=== PATIENT | female | born 1940 | race Caucasian/White ===

== ENCOUNTER → 2016-05-29 | Outpatient (CLI) | payer BC ==
[~2016-05-29] MED LIST: ALBUAER2 INH; ASPEC81 PO; ATRINS INH; CZR50 PO; GLC500 PO; LEVO75TA33 PO; MCR5 PO; REPA0.5T PO; SIMV10TA2 PO; [UNRECOGNIZED DRUG - OTHER] PO
--- NOTE | 2016-05-29 12:40 | MAMMOGRAPHY REPORT ---
BILATERAL DIGITAL SCREENING MAMMOGRAM WITH CAD: 05/29/2016 CLINICAL HISTORY: Routine screening. Patient has no complaints. TECHNIQUE: Current study was also evaluated with a Computer Aided Detection (CAD) system. Bilatera l CC and MLO views were obtained. COMPARISON: Comparison is made to exams dated: 05/26/2015 mammogram, 06/12/2012 mammogram, 05/29/2011 mammogram, 05/26/2010 mammogram, 05/24/2009 mammogram, and 06/20/2013 mammogram - [facility] enter. BREAST COMPOSITION: There are scattered areas of fibroglandular density in both breasts. FINDINGS: No suspicious masses, calcifications, or areas of architectural distortion are noted in e ither breast. There has been no significant interval change compared to prior exams. Scattered bilat eral benign-appearing calcifications are not significantly changed. IMPRESSION: ACR BI-RADS CATEGORY 2: BENIGN There is no mammographic evidence of malignancy. A 1 year screening mammogram is recommended. The p atient will receive written notification of the results. Approximately 10% of breast cancers are not detected with mammography. A negative mammographic repor t should not delay biopsy if a clinically suggestive mass is present. Eliana Hahn M.D. ah/:05/29/2016 11:47:10 Director Sales And Trade Marketing: Kiley Rabago, [facility] letter sent: Normal 1/2 BI-RADS Code: ACR BI-RADS Category 2: Benign
== END | disposition home or self-care (01) ==
LOC: C.MAMM 10:06
PROVIDERS: ATTEND Family Medicine
DX: Z12.31 Encounter for screening mammogram for malignant neoplasm of breast (principal)

== ENCOUNTER 2017-04-17 09:57 | Emergency (ER) | payer BC ==
[~2017-04-17] VITALS: Ht 154.9 cm; Wt 92.1 kg
[2017-04-17 09:59] VITALS: TEMP 36.7; Ht 154.9 cm; Wt 92.1 kg
[2017-04-17] MEDS ORDERED: VNTHFA/IN INH ×2 (10:32→11:23)
[2017-04-17] MEDS ORDERED: LOSA1TAB38 PO (10:36)
[2017-04-17] MEDS ORDERED: ASPI81TA28 PO (10:36)
[2017-04-17] MEDS ORDERED: CHOL1TAB42 PO (10:36)
[2017-04-17] MEDS ORDERED: SITA100T3 PO (10:36)
[2017-04-17] MEDS ORDERED: REPA2TAB12 PO (10:36)
[2017-04-17] MEDS ORDERED: SYN100 PO (10:36)
[2017-04-17] MEDS ORDERED: TURM500T PO (10:36)
[2017-04-17] MEDS ORDERED: TOLT1CAP3 PO (10:36)
--- NOTE | 2017-04-17 10:39 | EMERGENCY ROOM VISIT NOTE ---
History First contact with patient: 10:18 Chief Complaint: FLU LIKE SX Stated Complaint: SOB, COUGH, FEVER, SORE THROAT History of Present Illness The patient is a 76 year old female who presents to the Emergency Room with complaints of cough, sore throat, ear pain, chest tightness and trouble breathing since April 04. She reports her symptoms have been worsening since then. She states her chest feels tight when she takes a deep breath in or after coughing, and that she feels as though she has trouble getting a breath in and is wheezing. With regards to her cough, it is non-productive. She states she has a history of asthma and uses her albuterol inhalers on an as needed basis, but has run out. She states she received her flu shot this year. She denies chest pain, palpitations, syncopal episodes, n/v, and leg swelling. She recent travelled back by car from [place] on Sunday. Review of Systems See HPI for pertinent positives & negatives. A total of 10 systems reviewed and were otherwise negative. Past Medical/Surgical History Medical Problems: (1) Type II diabetes mellitus Diabetes Mellitus Asthma Hyperlipidemia Hypertension Hypothyroidism Social History Smoking Status: Never Smoker Current/Historical Medications Scheduled Albuterol Hfa (Ventolin Hfa), 2-4 PUFFS INH Q6H Aspirin (Aspirin Ec), 81 MG PO DAILY Azithromycin (Zithromax Z-Siva), 0 PO UD Cholecalciferol (Vitamin D), 5,000 INTER.UNIT PO DAILY Ipratropium-Albuterol (Duoneb), 1 TREATMENT INH Q4H Levothyroxine Sodium (Synthroid), 100 MCG PO DAILY Losartan Potassium (Cozaar), 100 MG PO DAILY Repaglinide (Prandin), 2 MG PO AC Simvastatin (Zocor), 10 MG PO QPM Sitagliptin Phosphate (Januvia), 100 MG PO DAILY Tolterodine Tartrate (Tolterodine Tartrate ER), 4 MG PO DAILY Turmeric (Curcuma Longa) (Turmeric), 500 MG PO DAILY Physical Exam Vital Signs Date Time Temp Pulse Resp B/P (MAP) Pulse Ox O2 Delivery O2 Flow Rate FiO2 04/17/17 11:46 86 20 130/66 95 Room Air 04/17/17 09:59 36.7 88 18 151/84 97 Room Air Physical Exam HEENT: Head - normocephalic and atraumatic. Pupils are equal, round, and reactive to light. Extraocular eye muscles are intact and sclera are anicteric. Ears - bilaterally patent canals with noninjected tympanic membranes and no evidence of hemotympanum. Nose - moist nasal mucosa without discharge. Mouth - moist buccal mucosa. Oropharynx is nonerythematous and there is no tonsillar exudate or edema noted. Neck: Supple; no JVD, nuchal rigidity, cervical lymphadenopathy, or auscultated bruits. Heart: Regular rate and rhythm. There is a normal S1 and S2 with no murmurs, clicks, or gallops appreciated. Lungs: Breath sounds present with wheezing noted throughout. Abdomen: Soft, completely nontender, nondistended, with good bowel sounds. There are no palpable pulsatile masses or hepatosplenomegaly. There is no guarding, rigidity, or rebound noted. Extremities: No evidence of cyanosis, clubbing, or edema. There are easily palpable peripheral pulses. Neuro:The patient is awake and alert, oriented to day, time, and place. Muscle strength is 5/5 in all 4 extremities. The patient has equal cotton buyer strength and equal pedal push and pull. There are no cerebellar signs. Medical Decision & Procedures ER Provider Diagnostic Interpretation: CHEST ONE VIEW PORTABLE CLINICAL HISTORY: 76 years-old Female presenting with 2 week hx of cough. rule out infection. TECHNIQUE: Portable upright AP view of the chest was obtained. COMPARISON: 03/02/2011. FINDINGS: Atherosclerosis of the aortic arch. Cardiac silhouette normal in size. Mildly low lung volumes. Lungs and pleural spaces clear. Degenerative changes of the thoracic spine. Upper abdomen normal. IMPRESSION: 1. No acute cardiopulmonary disease. Laboratory Results Test 04/17/17 11:15 Influenza Type A (RT-PCR) Neg for Influ A (NEG) Influenza Type B (RT-PCR) Neg for Influ B (NEG) Medications Administered Medications (Trade) Dose Ordered Sig/Gato Route Start Time Stop Time Status Last Admin Dose Admin Azithromycin (Zithromax Tab) 500 mg NOW STAT PO 04/17/17 11:18 04/17/17 11:19 DC 04/17/17 11:24 500 MG Albuterol/ Ipratropium (Duoneb) 3 ml STK-MED ONCE .ROUTE 04/17/17 11:22 04/17/17 11:23 DC 04/17/17 11:24 3 ML ED Course 10:18: The patient was evaluated in room A3. A complete history and physical exam was performed. 10:55: The case was discussed with the attending physician, Dr. Marshall. 11:55: The patient was reassessed. She is resting comfortably and reports an improvement in her wheezing after the duonebs. 12:10: The patient was reassessed. No new complaints. She is agreeable to discharge with follow up with her PCP. 12:26: Influenza swab came back negative. The patient was informed of this result. Medical Decision Etiologies such as pneumonia, COPD, reactive airway disease, CHF, pneumothorax, musculoskeletal, infections, as well as others were entertained. Given that her CXR was negative, and her breathing improved with the duonebs, she is safe for discharge with prescriptions for z-pack, duonebs and an albuterol inhaler. We counselled her on following up with her PCP and seeking medical attention if her condition worsened. Impression Primary Impression: Upper respiratory infection Departure Information Dispostion Home / Self-Care Prescriptions Albuterol Hfa (VENTOLIN HFA) 200 Puffs/39564 Mcg Aers 2-4 PUFFS INH Q6H, #1 INHALER Prov: Husam Hays M.D. 04/17/17 Ipratropium-Albuterol (DUONEB) 3 Ml Nebu 1 TREATMENT INH Q4H, #1 BOX Prov: Pilo Marshall D.O. 04/17/17 Azithromycin (ZITHROMAX Z-SIVA) 250 Mg Tab 0 PO UD, #1 PKT 2 TABS DAY 1, THEN 1 TAB DAILY FOR 4 DAYS Prov: Pilo Marshall D.O. 04/17/17 Referrals Maria Isabel Paez DO (PCP) Patient Instructions My [facility] Additional Instructions You presented to [facility] emergency department due to sore throat, ear pain, cough and chest tightness. Your chest xray was negative for an infection. We treated you with nebulizers here and will be discharging you home with a new prescription for duonebs to use as needed to improve your breathing. We also refilled your prescription for your albuterol inhaler, which you can use every four hours. We gave you a dose of an antibiotic called azithromycin here, and you require 4 more days of the azithromycin to finish the course. Please take the first dose tomorrow. If you experience worsening shortness of breath, chest pain, fever or chills, please seek medical attention. Otherwise, follow up with your primary care provider to ensure these symptoms resolve. Resident Tracking Resident Involvement: Resident Care Provided Care Provided: Adult ED Problem Qualifiers Primary Impression: Upper respiratory infection URI type: unspecified URI Qualified Codes: J06.9 - Acute upper respiratory infection, unspecified
[2017-04-17] MEDS ORDERED: ALBUT/IPRATROP 3MG/0.5MG NEB 3 ML VIAL INH ONE (11:15)
[2017-04-17] MEDS ORDERED: IPRA-64 INH ×2 (11:18→13:13)
[2017-04-17] MEDS ORDERED: AZITTAB PO (11:18)
[2017-04-17] MEDS ORDERED: AZITHROMYCIN 250 MG TAB PO STA (11:18)
[2017-04-17] MEDS ORDERED: ALBUT/IPRATROP 3MG/0.5MG NEB 3 ML VIAL ONE (11:22)
--- NOTE | 2017-04-17 11:28 | DIAGNOSTIC IMAGING REPORT ---
CHEST ONE VIEW PORTABLE CLINICAL HISTORY: 76 years-old Female presenting with 2 week hx of cough. rule out infection. TECHNIQUE: Portable upright AP view of the chest was obtained. COMPARISON: 03/02/2011. FINDINGS: Atherosclerosis of the aortic arch. Cardiac silhouette normal in size. Mildly low lung volumes. Lungs and pleural spaces clear. Degenerative changes of the thoracic spine. Upper abdomen normal. IMPRESSION: 1. No acute cardiopulmonary disease. Electronically signed by: Mak Berger M.D. 04/17/2017 11:27 AM Dictated Date/Time: 04/17/2017 11:26 AM
[2017-04-17 12:23] LABS: INFLUENZA A PCR Neg for Influ A (NEG); INFLUENZA B PCR Neg for Influ B (NEG)
[2017-04-17 12:33] VITALS: BP 147/82; PULSE 91; O2SAT 92
--- NOTE | 2017-04-17 13:16 | EMERGENCY ROOM VISIT NOTE ---
History Report prepared by Keely: Demetri Cruz Under the Supervision of: Dr. Pilo Marshall D.O. First contact with patient: 10:18 Chief Complaint: FLU LIKE SX Stated Complaint: SOB, COUGH, FEVER, SORE THROAT History of Present Illness The patient is a 76 year old female who presents to the Emergency Room with a chief complaint of a cough that began 2 weeks ago. She is also experiencing a sore throat, bilateral ear pain, chest tightness, and trouble breathing. She reports her symptoms have been worsening since then. She states her chest feels tight whenever she takes a deep breath or after coughing. With regards to her cough, it is non-productive. She states she has a history of asthma and uses her albuterol inhalers on an as needed basis, but has run out. She states she received her flu shot this year. She denies chest pain, palpitations, syncopal episodes, n/v, and leg swelling. She recent travelled back by car from [place] on Sunday. Source of History: patient Onset: 2 weeks ago Position: other (Respiratory System) Symptom Intensity: moderate (non-productive) Quality: other (Cough) Timing: worsening Associated Symptoms: + sorethroat, + SOB, No LOC, No chest pain, No nausea, No vomiting Note: She is experiencing bilateral ear pain and chest tightness. Review of Systems See HPI for pertinent positives & negatives. A total of 10 systems reviewed and were otherwise negative. Past Medical & Surgical Medical Problems: (1) Type II diabetes mellitus Family History Omitted secondary to the patient's age. Social History Smoking Status: Never Smoker Smokeless Tobacco Use: No Drug Use: none Occupation Status: retired Current/Historical Medications Scheduled Albuterol Hfa (Ventolin Hfa), 2-4 PUFFS INH Q6H Aspirin (Aspirin Ec), 81 MG PO DAILY Azithromycin (Zithromax Z-Siva), 0 PO UD Cholecalciferol (Vitamin D), 5,000 INTER.UNIT PO DAILY Ipratropium-Albuterol (Duoneb), 1 TREATMENT INH Q4H Levothyroxine Sodium (Synthroid), 100 MCG PO DAILY Losartan Potassium (Cozaar), 100 MG PO DAILY Repaglinide (Prandin), 2 MG PO AC Simvastatin (Zocor), 10 MG PO QPM Sitagliptin Phosphate (Januvia), 100 MG PO DAILY Tolterodine Tartrate (Tolterodine Tartrate ER), 4 MG PO DAILY Turmeric (Curcuma Longa) (Turmeric), 500 MG PO DAILY Allergies Coded Allergies: Alfentanil (Verified Allergy, Unknown, 04/17/17) Meperidine (Unverified Allergy, Unknown, VERTIGO, 04/17/17) Hurley (Verified Allergy, Unknown, 04/17/17) Chocorua (Verified Allergy, Unknown, 04/17/17) Physical Exam Vital Signs Date Time Temp Pulse Resp B/P (MAP) Pulse Ox O2 Delivery O2 Flow Rate FiO2 04/17/17 12:33 91 20 147/82 92 04/17/17 11:46 86 20 130/66 95 Room Air 04/17/17 09:59 36.7 88 18 151/84 97 Room Air Physical Exam CONSTITUTIONAL/VITAL SIGNS: Reviewed / noted above. GENERAL: Non-toxic in appearance. INTEGUMENTARY: Warm, dry, and [place]. HEAD: Normocephalic. EYES: without scleral icterus or trauma. ENT/OROPHARYNX: clear and moist. LYMPHADENOPATHY/NECK: Is supple without lymphadenopathy or meningismus. RESPIRATORY: Bilateral expiratory wheezes. Rhonchi to the left base. CARDIOVASCULAR: Regular rate and rhythm. GI/ABDOMEN: Soft and nontender. No organomegaly or pulsatile mass. No rebound or guarding. Normal bowel sounds. EXTREMITIES: Warm and well perfused. BACK: No CVA tenderness. NEUROLOGICAL: Intact without focal deficits. PSYCHIATRIC: normal affect. MUSCULOSKELETAL: Normally developed with good muscle tone. Medical Decision & Procedures ER Provider Diagnostic Interpretation: Radiology results as stated below per my review and radiologist interpretation: CHEST ONE VIEW PORTABLE CLINICAL HISTORY: 76 years-old Female presenting with 2 week hx of cough. rule out infection. TECHNIQUE: Portable upright AP view of the chest was obtained. COMPARISON: 03/02/2011. FINDINGS: Atherosclerosis of the aortic arch. Cardiac silhouette normal in size. Mildly low lung volumes. Lungs and pleural spaces clear. Degenerative changes of the thoracic spine. Upper abdomen normal. IMPRESSION: 1. No acute cardiopulmonary disease. Electronically signed by: Mak Berger M.D. 04/17/2017 11:27 AM Dictated Date/Time: 04/17/2017 11:26 AM Laboratory Results Test 04/17/17 11:15 Influenza Type A (RT-PCR) Neg for Influ A (NEG) Influenza Type B (RT-PCR) Neg for Influ B (NEG) Laboratory results as stated above per my review. Medications Administered Medications (Trade) Dose Ordered Sig/Gato Route Start Time Stop Time Status Last Admin Dose Admin Azithromycin (Zithromax Tab) 500 mg NOW STAT PO 04/17/17 11:18 04/17/17 11:19 DC 04/17/17 11:24 500 MG Albuterol/ Ipratropium (Duoneb) 3 ml STK-MED ONCE .ROUTE 04/17/17 11:22 04/17/17 11:23 DC 04/17/17 11:24 3 ML ED Course 1018: Previous medical records were reviewed. The patient was evaluated in room A3. A complete history and physical examination was performed. 1118: Ordered Azithromycin 500 mg PO 1122: Ordered DuoNeb 3 ml .ROUTE 1225: On reevaluation, the patient is resting. I discussed the results and findings with the patient. She verbalized agreement of the treatment plan. She was discharged home. Medical Decision Differentials considered include acute myocardial infarction, acute coronary syndrome, myocarditis, pericarditis, pericardial effusions /tamponade, esophageal perforation, pulmonary embolism, pneumonia, pneumothorax, cardiomyopathy, congestive heart, anemia, and COPD/asthma exacerbation. This is a 76-year-old female who presents to the ED with a chief complaint of shortness of breath, wheezing and a nonproductive cough. The patient states that she has had the symptoms for the past 2 weeks or so. Her symptoms seem to be getting worse. She had increased shortness of breath today. She states that she has been using her inhalers but has ran out. Her vital signs are normal. Her physical exam reveals diffuse expiratory wheezing on exam with some rhonchi left base. The patient has an unremarkable chest x-ray. Flu swab was negative. The patient was treated with a DuoNeb treatment here. Her wheezing and breathing improved significant only. She was started on Zithromax. Prescription for DuoNeb and Zithromax were provided. She was also given inhaler. Medication Reconcilliation Current Medication List: was personally reviewed by me Blood Pressure Screening Patient's blood pressure: Elevated blood pressure Blood pressure disposition: Referred to PCP Impression Primary Impression: Upper respiratory infection Additional Impressions: Asthma exacerbation Acute bronchitis Scribe Attestation The scribe's documentation has been prepared under my direction and personally reviewed by me in its entirety. I confirm that the note above accurately reflects all work, treatment, procedures, and medical decision making performed by me. Departure Information Dispostion Home / Self-Care Prescriptions Albuterol Hfa (VENTOLIN HFA) 200 Puffs/34156 Mcg Aers 2-4 PUFFS INH Q6H, #1 INHALER Prov: Husam Hays M.D. 04/17/17 Ipratropium-Albuterol (DUONEB) 3 Ml Nebu 1 TREATMENT INH Q4H, #1 BOX Prov: Pilo Marshall D.O. 04/17/17 Azithromycin (ZITHROMAX Z-SIVA) 250 Mg Tab 0 PO UD, #1 PKT 2 TABS DAY 1, THEN 1 TAB DAILY FOR 4 DAYS Prov: Pilo Marshall D.O. 04/17/17 Referrals Maria Isabel Paez DO (PCP) Forms HOME CARE DOCUMENTATION FORM, IMPORTANT VISIT INFORMATION Patient Instructions My [facility] Problem Qualifiers
[2017-04-17] MEDS ORDERED: PRVHFAIN NEB (14:41)
== END 2017-04-17 12:34 | disposition home or self-care (01) ==
LOC: C.EDB 09:59 → C.EDA 12:34
DX: J06.9 Acute upper respiratory infection, unspecified (principal); J45.909 Unspecified asthma, uncomplicated; J20.9 Acute bronchitis, unspecified; E11.9 Type 2 diabetes mellitus without complications; Z79.82 Long term (current) use of aspirin; Z79.899 Other long term (current) drug therapy; Z88.8 Allergy status to other drugs, medicaments and biological substances; Z91.018 Allergy to other foods

== ENCOUNTER → 2017-05-30 | Outpatient (CLI) | payer BC ==
[~2017-05-30] MED LIST changes: -ALBUAER2 INH; -ASPEC81 PO; +ASPI81TA28 PO; -ATRINS INH; +CHOL1TAB42 PO; -CZR50 PO; -GLC500 PO; +IPRASOL4 INH; -LEVO75TA33 PO; +LOSA1TAB38 PO; -MCR5 PO; +PRVHFAIN NEB; -REPA0.5T PO; +REPA2TAB12 PO; +SITA100T3 PO; +SYN100 PO; +TOLT1CAP3 PO; +TURM500T PO; +VNTHFA/IN INH; -[UNRECOGNIZED DRUG - OTHER] PO
--- NOTE | 2017-05-30 15:23 | MAMMOGRAPHY REPORT ---
BILATERAL DIGITAL SCREENING MAMMOGRAM TOMOSYNTHESIS WITH CAD: 05/30/2017 CLINICAL HISTORY: Routine screening. Patient has no complaints. TECHNIQUE: Breast tomosynthesis in addition to standard 2D mammography was performed. Current study was also evaluated with a Computer Aided Detection (CAD) system. COMPARISON: Comparison is made to exams dated: 05/29/2016 mammogram, 05/26/2015 mammogram, 06/20/2013 ma mmogram, 06/12/2012 mammogram, 05/29/2011 mammogram, and 05/26/2010 mammogram - [facility] nter. BREAST COMPOSITION: There are scattered areas of fibroglandular density in both breasts. FINDINGS: There are a few stable benign rim calcifications in the right breast. No suspicious mass, architectural distortion or cluster of microcalcifications is seen. IMPRESSION: ACR BI-RADS CATEGORY 1: NEGATIVE There is no mammographic evidence of malignancy. A 1 year screening mammogram is recommended. The pa tient will receive written notification of the results. Approximately 10% of breast cancers are not detected with mammography. A negative mammographic report should not delay biopsy if a clinically suggestive mass is present. Alina Lozano M.D. ay/:05/30/2017 10:28:10 Helicopter Mechanic: Sully HOLLOWAY([place])([place]), [facility] letter sent: Normal 1/2 BI-RADS Code: ACR BI-RADS Category 1: Negative
== END | disposition home or self-care (01) ==
LOC: C.MAMM 09:50
PROVIDERS: ATTEND Family Medicine
DX: Z12.31 Encounter for screening mammogram for malignant neoplasm of breast (principal)

== ENCOUNTER 2019-03-31 04:59 | Inpatient (IN) ==
--- NOTE | 2019-02-27 13:01 | PAT Medication Instructions ---
Medication Instructions Date of Service February 27, 2019 Home Medications albuterol sulfate 0.63 mg INHALATION QID PRN albuterol sulfate 1 puff INHALATION Q6H PRN cholecalciferol (vitamin D3) [Vitamin D3] 25 mcg PO QAM 02/25/19 [History Confirmed 02/25/19] fluticasone propion-salmeterol [Advair HFA] 2 puff INHALATION BID hydrochlorothiazide 25 mg PO QAM 02/25/19 [History Confirmed 02/25/19] insulin aspart U-100 [Novolog Flexpen U-100 Insulin] 1 unit SUBCUT TID insulin glargine [Lantus Solostar U-100 Insulin] 40 - 50 unit SUBCUT BID irbesartan 150 mg PO HS 02/25/19 [History Confirmed 02/25/19] levothyroxine 100 mcg PO QAM 02/25/19 [History Confirmed 02/25/19] losartan 50 mg PO QAM 02/25/19 [History Confirmed 02/25/19] montelukast 10 mg PO PM 02/25/19 [History Confirmed 02/25/19] omeprazole 20 mg PO BID 02/25/19 [History Confirmed 02/25/19] simvastatin 20 mg PO HS 02/25/19 [History Confirmed 02/25/19] sitagliptin [Januvia] 100 mg PO QAM 02/25/19 [History Confirmed 02/25/19] tolterodine 4 mg PO QAM 02/25/19 [History Confirmed 02/25/19] DO NOT take the morning of surgery cholecalciferol (vitamin D3) [Vitamin D3] 25 mcg PO QAM 02/25/19 [History Confirmed 02/25/19] hydrochlorothiazide 25 mg PO QAM 02/25/19 [History Confirmed 02/25/19] insulin aspart U-100 [Novolog Flexpen U-100 Insulin] 1 unit SUBCUT TID losartan 50 mg PO QAM 02/25/19 [History Confirmed 02/25/19] sitagliptin [Januvia] 100 mg PO QAM 02/25/19 [History Confirmed 02/25/19] tolterodine 4 mg PO QAM 02/25/19 [History Confirmed 02/25/19] Take morning of surgery With a small sip of water, OTHERWISE NOTHING TO EAT OR DRINK AFTER MIDNIGHT: albuterol sulfate 0.63 mg INHALATION QID PRN (if needed) albuterol sulfate 1 puff INHALATION Q6H PRN (use if needed; please bring with you to hospital day of surgery if possible) fluticasone propion-salmeterol [Advair HFA] 2 puff INHALATION BID levothyroxine 100 mcg PO QAM 02/25/19 [History Confirmed 02/25/19] omeprazole 20 mg PO BID 02/25/19 [History Confirmed 02/25/19] Take evening before surgery albuterol sulfate 0.63 mg INHALATION QID PRN (if needed) albuterol sulfate 1 puff INHALATION Q6H PRN (if needed) fluticasone propion-salmeterol [Advair HFA] 2 puff INHALATION BID insulin aspart U-100 [Novolog Flexpen U-100 Insulin] 1 unit SUBCUT TID insulin glargine [Lantus Solostar U-100 Insulin] 40 - 50 unit SUBCUT BID irbesartan 150 mg PO HS 02/25/19 [History Confirmed 02/25/19] montelukast 10 mg PO PM 02/25/19 [History Confirmed 02/25/19] omeprazole 20 mg PO BID 02/25/19 [History Confirmed 02/25/19] simvastatin 20 mg PO HS 02/25/19 [History Confirmed 02/25/19] Insulin Dependent Diabetic Patients * Test your blood sugar the morning of surgery * If Blood Sugar is GREATER THAN 150, take HALF of the number of units of your regular dose of: insulin glargine [Lantus Solostar U-100 Insulin] * If Blood Sugar is LESS THAN 150, DO NOT TAKE ANY: insulin glargine [Lantus Solostar U-100 Insulin] Other Notes If you have any questions please call us at [phone] or [phone] or [phone] or [phone]
--- NOTE | 2019-02-28 09:17 | Anesthesiology Consultation ---
Date of Service February 28, 2019 Assessment & Plan (1) Encounter for pre-operative examination: - Awaiting review preop testing (labs, EKG, CXR). - Patient seeing PCP office prior to surgery on 03/03 (Kendra Juaquin, PAC). Will obtain note. - Check [facility] AM DOS Chart Review Chart Review: Patient seen in Pre Admission Testing Teaching & Discussion Pre-Anesthesia Teaching/Discussion Notes: Instructed NPO after midnight before surgery,except medications with 15 cc of water. Medication instructions provided according to the PAT guidelines. History Surgery Operation Date: 03/31/19 14:00 Proposed Procedures p Left Total Knee Arthroplasty - Rahul Sofia MD Height/Weight Height: 5 ft 1.5 in Weight: 103.9 kg Allergies Allergy/AdvReac Type Severity Reaction Status Date / Time bee venom protein (honey bee) Allergy Intermediate Hives Verified 02/25/19 13:23 meperidine AdvReac Intermediate vertigo Unverified 02/27/19 12:58 alfentanil AdvReac Mild Abdominal Verified 02/27/19 12:58 cramps Medications Home Medications Medication Instructions Recorded Confirmed Last Taken albuterol sulfate 0.63 mg INHALATION QID PRN 02/25/19 02/25/19 Unknown albuterol sulfate 1 puff INHALATION Q6H PRN 02/25/19 02/25/19 Unknown cholecalciferol (vitamin D3) 25 mcg PO QAM 02/25/19 02/25/19 Unknown [Vitamin D3] fluticasone propion-salmeterol 2 puff INHALATION BID 02/25/19 02/25/19 Unknown [Advair HFA] hydrochlorothiazide 25 mg PO QAM 02/25/19 02/25/19 Unknown insulin aspart U-100 [Novolog 1 unit SUBCUT TID 02/25/19 02/25/19 Unknown Flexpen U-100 Insulin] insulin glargine [Lantus Solostar 40 - 50 unit SUBCUT BID 02/25/19 02/25/19 Unknown U-100 Insulin] irbesartan 150 mg PO HS 02/25/19 02/25/19 Unknown levothyroxine 100 mcg PO QAM 02/25/19 02/25/19 Unknown losartan 50 mg PO QAM 02/25/19 02/25/19 Unknown montelukast 10 mg PO PM 02/25/19 02/25/19 Unknown omeprazole 20 mg PO BID 02/25/19 02/25/19 Unknown simvastatin 20 mg PO HS 02/25/19 02/25/19 Unknown sitagliptin [Januvia] 100 mg PO QAM 02/25/19 02/25/19 Unknown tolterodine 4 mg PO QAM 02/25/19 02/25/19 Unknown Past Medical History Medical History (Updated 02/28/19 @ 09:54 by Sofia Main) Asthma stable Diabetes mellitus, type 2 IDDM GERD (gastroesophageal reflux disease) controlled Hoarseness unchanged x 8+ months (?asthma/reflux related)- undergoing voice therapy (S otolarygnology) Hyperlipidemia Hypertension Hypothyroidism Morbid obesity Osteoarthritis Sleep apnea CPAP Urinary urgency Exercise / Class Metabolic Activity III < 4 Walking/Shop/Light housework Past Family History Family History Son Family history of diabetes mellitus Daughter Family history of diabetes mellitus Uncle Family history of diabetes mellitus Past Surgical History Surgical History H/O total hysterectomy History of ankle surgery LEFT ANKLE FUSION History of carpal tunnel release RT History of colonoscopy History of surgery RT SALIVARY GLAND REMOVED History of tonsillectomy History of tooth extraction History of total knee replacement RT Past Anesthesia History No Family Hx of Anesthesia Complications and Other "Slow to wake" x 1 episode/no issues with other surgeries/anesthesia. History of PONV No Hx of PONV and Hx of Motion Sickness Social History Smoking Status: Former smoker tobacco type: cigarettes Do You Dip or Chew Tobacco: No Smoking End Date: QUIT OVER 40 YEARS AGO Hx Alcohol Use: Yes Alcohol type: wine alcohol intake frequency: holidays/special occasions only Hx Substance Use: No substance use type: does not use Review of Systems Reflux controlled. Patient denies chest pain, shortness of breath, cough, wheezing, palpitations. Physical Exam Vital Signs VITALS BP 127/74 P 75 TEMP 98.3 SP02 94%RA RESP 18 PHYSICAL Full neck and c-spine range of motion. Full TMJ range of motion. TMD 3.5 finger breaths Mallampati Score 2 Dentition: partial on upper Lungs: clear throughout to auscultation Cardiac: regular rate and rhythm, no murmurs noted Spine: normal Carotid arteries: negative bruit Extremities: no edema Short neck
--- NOTE | 2019-02-28 10:39 | XRay Report ---
XR chest Pre-admission PA/Lat HISTORY: 78 years-old Female pat preoperative exam. No acute chest complaints COMPARISON: Chest radiograph 04/17/2017 TECHNIQUE: PA and lateral views of the chest FINDINGS: Cardiomediastinal and hilar silhouettes are within normal limits. There is no pneumothorax, pleural e ffusion, focal airspace consolidation or overt pulmonary edema. Degenerative changes of the shoulders and spine. IMPRESSION: No acute process. The above report was generated using voice recognition software. It may contain grammatical, syntax o r spelling errors. Electronically signed by: Maxi Sarmiento M.D. 02/28/2019 10:38 AM
[2019-02-28 11:33] LABS: Basophils # (auto) 0.03 K/uL (0-0.2); Basophils % (auto) 0.3 %; Eosinophils # (auto) 0.17 K/uL (0-0.5); Eosinophils % (auto) 1.8 %; Hematocrit (blood only) 36.2 % (37-47); Hemoglobin 11.8 g/dL (12.0-16.0); Immature Granulocytes # (auto) 0.03 K/uL (0.00-0.02); Immature Granulocytes % (auto) 0.3 %; Lymphocytes # (auto) 2.43 K/uL (1.2-3.4); Lymphocytes % (auto) 25.8 %; Mean Corpuscular Hemoglobin 26.9 pg (25-34); Mean Corpuscular Hgb Conc 32.6 g/dL (32-36); Mean Corpuscular Volume 82.6 fL (80-100); Mean Platelet Volume 11.3 fL (7.4-10.4); Monocytes # (auto) 0.78 K/uL (0.11-0.59); Monocytes % (auto) 8.3 %; Neutrophils # (auto) 5.99 K/uL (1.4-6.5); Neutrophils % (auto) 63.5 %; Platelet Count 313 K/uL (130-400); RDW Coefficient of Variation 14.7 % (11.5-14.5); RDW Standard Deviation 44.2 fL (36.4-46.3); Red Blood Count 4.38 M/uL (4.2-5.4); White Blood Count 9.43 K/uL (4.8-10.8)
[2019-02-28 11:42] LABS: Appearance Urine Turbid (Clear); Bacteria Urine Automated 2+ (Negative); Bilirubin Urine Negative (Negative); Blood Urine Trace (Negative); Color Urine Yellow; Epithelial Cell Urine Auto >30 /lpf (0-5); Glucose Urine UA Negative (Negative); Ketones Urine Negative (Negative); Leukocyte Esterase Urine 2+ (Negative); Nitrite Urine Negative (Negative); Protein Urine Negative (Negative); Specific Gravity Urine 1.021 (1.000-1.030); Urobilinogen Urine Negative (Negative); WBC Urine Automated >30 /hpf (0-5); pH Urine 6.5 (4.5-7.5)
[2019-02-28 11:47] LABS: Partial Thromboplastin Ratio 1.1; Partial Thromboplastin Time 29.6 Seconds (21.0-31.0); Prothrombin Time 10.4 Seconds (9.0-12.0)
[2019-02-28 11:55] LABS: Albumin Level 3.4 gm/dl (3.4-5.0); BUN Creatinine Ratio 16.8 (10-20); Calcium 8.6 mg/dl (8.5-10.1); Creatinine Clr Calc Pharmacy 41.9 ml/min; Est GFR (African American) 48.2; Est GFR (Non-African American) 41.6; Potassium 3.7 mmol/L (3.5-5.1)
[2019-02-28 12:00] LABS: Estimated Average Glucose 146 mg/dl; Hemoglobin A1C 6.7 % (4.5-5.6)
[2019-02-28 12:06] LABS: RBC Urine Automated >30 /hpf (0-4)
--- NOTE | 2019-03-30 19:09 | History and Physical Report ---
DATE OF ADMISSION: 03/31/2019 CHIEF COMPLAINT: Chronic left knee pain. HISTORY OF PRESENT ILLNESS: This is a 78-year-old female patient of Dr. Sfoia'pari complaining of chronic left knee pain, longstanding, now progressively getting worse. The patient has failed conservative treatment including anti-inflammatories, home exercise program and the use of a cane. The patient has increased pain with weightbearing activities and her pain does interfere with her activities of daily living. The patient has been diagnosed with end-stage osteoarthritis per clinical and radiographic exams. The patient wished to proceed with a left total knee arthroplasty. 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 SOCIAL HISTORY: Nonsmoker, nondrinker. FAMILY HISTORY: Noncontributory. REVIEW OF SYSTEMS: Chronic left knee pain, otherwise denies any shortness of breath, chest pain, nausea, vomiting or any other joint complaints. PAST SURGICAL HISTORY: Hysterectomy, tonsillectomy, salivary gland surgery, right carpal tunnel, left ankle fusion and right knee surgery. MEDICATIONS: 1. Aspirin 81 mg daily. 2. Hydrochlorothiazide 25 mg daily. 3. Irbesartan/hydrochlorothiazide 150 daily. 4. Januvia 100 mg daily. 5. Lantus insulin as needed. 6. Losartan 50 mg daily. 7. Levothyroxine 100 mcg daily. 8. Montelukast sodium 10 mg daily. 9. NovoLog insulin as needed 3 times daily. 10. Omeprazole 20 mg 2 tablets daily. 11. Simvastatin 20 mg daily. 12. Vitamin D 25 mcg daily. 13. Tolterodine 4 mg daily. ALLERGIES: ALFENTANIL AND BEE STINGS. PHYSICAL EXAMINATION: GENERAL: Well-developed, well-nourished 78-year-old female in no acute distress. She is alert and oriented x3 and pleasant. HEENT: Normocephalic, atraumatic. Extraocular motions are intact. Pupils are equal and reactive to light. HEART: Regular rate and rhythm, no murmurs. LUNGS: Clear. ABDOMEN: Soft, nontender, bowel sounds present. EXTREMITIES: Left knee reveals a limited range of motion of 0-115 degrees of varus deformity. Medial joint line tenderness with crepitation, 5/5 strength with pain. Neurologically and neurovascularly, she is intact in her left lower extremity. 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 PLAN: The patient was advised of her diagnosis. Indications, risks, benefits, postop course have all been reviewed. The patient wished to proceed with a left total knee arthroplasty. Necessary consent forms, preoperative testing and clearances will be obtained. RASHAWN
[2019-03-31] MEDS ORDERED: METOCLOPRAMIDE HCL 10 MG TABLET PO SCH (06:00)
[2019-03-31] MEDS ORDERED: ROPIVACAINE 0.5% HCL/PF 150 MG, BUPIVACAINE 0.5% MPF 30 ML, EPINEPHrine 30MG/30ML (OR U... INSTIL SCH (06:00)
[2019-03-31] MEDS ORDERED: GABAPENTIN 300 MG CAP PO SCH (06:00)
[2019-03-31] MEDS ORDERED: FAMOTIDINE 20 MG TAB PO SCH (06:00)
[2019-03-31] MEDS ORDERED: LR 500ML BOLUS, THEN 15ML/HR IV SCH (06:00)
[2019-03-31] MEDS ORDERED: CeleBREX 200 MG CAP PO SCH (06:00)
[2019-03-31] MEDS ORDERED: TRANEXAMIC ACID 1,000 MG **IV Pre-op IV SCH (06:00)
[2019-03-31] MEDS ORDERED: CEFAZOLIN 2000MG 2,000 MG/15 ML SYR IV SCH (06:00)
[2019-03-31] MEDS ORDERED: TRANEXAMIC ACID 1,000 MG **IV Intra-op IV SCH (06:00)
[2019-03-31] MEDS ORDERED: ACETAMINOPHEN 500 MG TAB PO SCH (06:00)
[2019-03-31] MEDS ORDERED: BUPIVACAINE 0.5 % 5 MG/1 ML PF 10ML VIAL ONE (06:26)
[2019-03-31] MEDS ORDERED: BUPIVACAINE 0.25% 30 ML VIAL ONE (06:27)
[2019-03-31] MEDS ORDERED: PROPOFOL IV EMULSION 10 MG/ML 20 ML VIAL IV ONE (06:40)
[2019-03-31] MEDS ORDERED: LIDOCAINE HCL 2% 2 ML VIAL/AMP(20MG/ML) INFIL ONE (06:40)
[2019-03-31] MEDS ORDERED: ONDANSETRON INJ 2 MG/ML 2 ML VIAL ONE (06:40)
[2019-03-31] MEDS ORDERED: fentaNYL citrate 100 MCG/2 ML VIAL ONE (06:41)
[2019-03-31] MEDS ORDERED: MIDAZOLAM HCL 1 MG/ML 2ML VIAL ONE (06:41)
[2019-03-31] MEDS ORDERED: ORTHO JOINT ANESTHETIC ONE (06:42)
[2019-03-31] MEDS ORDERED: BACITRACIN INJ 50,000 UNIT VIAL ONE (06:42)
--- NOTE | 2019-03-31 07:04 | History & Physical Bridge Note ---
Date of Service March 31, 2019 History & Physical Bridge Note I have examined the patient, reviewed the History & Physical and in the interval since the performance of the History & Physical I have noted the following changes of clinical significance: no changes noted
[2019-03-31] MEDS ORDERED: ONDANSETRON INJ 2 MG/ML 2 ML VIAL IV PRN ×2 (07:17→10:07)
[2019-03-31] MEDS ORDERED: ePHEDrine sulfate 50 MG/ML AMP IV PRN (07:17)
[2019-03-31] MEDS ORDERED: ATROPINE SULFATE 0.1 MG/ML 10ML SYR IV PRN (07:17)
--- NOTE | 2019-03-31 08:41 | Operative Report ---
Post Operative Report Pre & Post Diagnosis Operation Date: 03/31/19 07:00 Pre-Op Diagnosis: Left knee end-stage osteoarthritis Post-Op Diagnosis: Left knee end-stage osteoarthritis I identified the patient and participated in the time-out.: Yes Procedure Operation Date: 03/31/19 07:00 Actual Procedures p Left Total Knee Arthroplasty, Cemented, [employer]hew(Left) - Rahul Sofia MD Surgeon Rahul Sofia MD Health Information Management Director GILBERT Hua Estimated Blood Loss 5 Findings Consistent with Post-Op Diagnosis Specimens Bone cuts Drains 2 Hemovac Anesthesia Type MAC Spinal Regional Complications none Disposition Accompanied Patient To Recovery: No Disposition: Recovery Room Indications 78-year-old female with chronic progressive osteoarthritis her left knee. History of a prior right knee replacement several years ago and doing well with that. Radiographs demonstrate that she has tricompartmental DJD acsy-ac-defj and medial compartment with subluxation. Varus knee. Description of Procedure The patient was taken to the operating room and anesthetized under spinal MAC regional. Patient was placed supine on the the operating table. A pneumatic tourniquet was placed about the obese left upper thigh. The knee exam demonstrated good range of motion crepitation no instability. The involved leg was elevated exsanguinated with Esmarch bandage and the pneumatic tourniquet was raised to 350 millimeters mercury. A longitudinal incision was made across the anterior knee. Skin flaps were elevated. An incision was made into the medial retinaculum and extended up into the mid third of the quadriceps tendon and extended down to the tibial tubercle. Intra-articular findings demonstrated tricompartmental DJD [id number] medial compartment grade 4 chondral lesion lateral femoral condyle and grade III chondromalacia patella. The knee was exposed by excising cruciate ligaments and menisci. The infrapatellar fat pad was resected. The fat pad over the anterior femur at the upper aspect of the articular surface was resected for placement of the component in that area. A subperiosteal peel lateral release was performed around the patella The Cos[employer]hew journey 2.0 total knee arthroplasty system was utilized for the procedure. The custom femoral cutting guide was pinned in position. The distal femoral cut was made. The size 5, 5 in 1 cutting block was placed. The anterior posterior and chamfer cuts were made. The knee was extended and a free hand cut technique was performed to the patella. The patella with was measured and the width was reproduced using a 32 symmetrical patella component. 3 drill holes are made for the patella component pegs. The tibia was then subluxed. The custom tibial cutting block was pinned in position and the proximal tibial cut was made with the oscillating saw. The size 3 tibial trial was externally rotated in line with the tibial tubercle and pinned in position. The punch for the stem was used. The femoral trial was inserted and centered the notch cutting devices were used and the collet was placed. Tibial trials were used fo r the insert. The size 13 trial gave balanced ligaments through full range of motion. Patella tracking was assessed with range of motion. The patella tracked centrally. The trials were removed. The Orthomix anesthetic cocktail was injected per protocol. The cut bone surfaces and soft tissue were copiously irrigated with antibiotic solution with bacitracin. The final components were cemented with Simplex cement. The final components were Cos[employer]hew journey 2.0 left posterior stabilized size 5 femoral component, 3 tibial baseplate, 13 polyethylene posterior stabilized insert, 32 symmetrical patella. While the cement cured the Betadine soak was used per protocol. When the cement cured the knee was copiously irrigated with pulsatile lavage antibiotic solution with bacitracin. 2 drains were brought out laterally connected to Hemovac. The quadriceps tendon and medial retinaculum were closed with interrupted [id number] #1 Vicryl sutures. The knee was taken through full range of motion and repair was secure. The subcutaneous tissues were closed with 2-0 Vicryl sutures. The skin was closed with aries. A sterile dressing was applied. The tourniquet was let down and the patient had good capillary refill to the extremity. The patient tolerated the procedure well. My physician recruiting assistant GILBERT Hua assisted in the procedure including prepping draping leg positioning soft tissue retraction instrument management and assisted in the closure ,dressings application and will participate in postoperative care the patient. I attest to the content of the Intraoperative Record and any orders documented therein. Any exceptions are noted below.
--- NOTE | 2019-03-31 09:24 | XRay Report ---
XR knee LT 1 or 2V routine CLINICAL HISTORY: Postoperative evaluation. COMPARISON: None FINDINGS: Alignment of the total left arthroplasty is anatomic. There is no fracture or unexpected r adiopaque foreign bodies. IMPRESSION: Expected findings following total left knee arthroplasty. Electronically signed by: Saúl Sal M.D. 03/31/2019 9:22 AM
--- NOTE | 2019-03-31 09:39 | Anesthesiology Progress Note ---
Date of Service March 31, 2019 Anesthesia Post Procedure Vital Signs Vital Signs: Temp Pulse Resp BP Pulse Ox 03/31/19 09:25 37.2 C 76 16 140/90 97 03/31/19 09:15 80 16 133/70 97 03/31/19 09:05 79 14 129/62 98 03/31/19 08:59 37.3 C 85 14 111/57 L 98 03/31/19 05:37 36.8 C 20 174/74 H 95 Transfer of Care Handoff Completed per policy Notes Mental Status: alert / awake / arousable and participated in evaluation Nausea / Vomiting: adequately controlled Pain: adequately controlled Airway Patency, RR, SpO2: stable & adequate BP & HR: stable & adequate Hydration State: stable & adequate Neuraxial Anesthesia: was administered and sensory block is resolving Anesthetic Complications: no major complications apparent and Pt Satisfied with anesthetic care
[2019-03-31] MEDS ORDERED: bisacodyL 10 MG SUPP PR PRN (10:07)
[2019-03-31] MEDS ORDERED: HYDROmorphone INJ 0.5 MG/0.5 ML SYR IV PRN (10:07)
[2019-03-31] MEDS ORDERED: NALOXONE HCL 0.4 MG/1 ML VIAL/CARP IV PRN (10:07)
[2019-03-31] MEDS ORDERED: MAGNESIUM HYDROXIDE SUSP 30 ML UDC PO PRN (10:07)
[2019-03-31] MEDS ORDERED: ALBUTEROL HFA 8 GM INHALER INH PRN (10:07)
[2019-03-31] MEDS ORDERED: PHARMACY GLYCEMIC MGMT CONSULT PRN (10:12)
[2019-03-31] MEDS ORDERED: CARBOHYDRATES FOR HYPOGLYCEMIA PO PRN (10:30)
[2019-03-31] MEDS ORDERED: GLUCOSE 10 TABS/TUBE PO PRN (10:30)
[2019-03-31] MEDS ORDERED: GLUCAGON FOR INJ 1 MG VIAL IM PRN (10:30)
[2019-03-31] MEDS ORDERED: GLUCOSE 40% GEL 15 GM TUBE PO PRN (10:30)
[2019-03-31] MEDS ORDERED: DEXTROSE 50% 50 ML SYRINGE IV PRN (10:30)
--- NOTE | 2019-03-31 10:54 | Consultation ---
Date of Consultation March 31, 2019 Assessment & Plan (1) Status post total knee replacement, left: (2) Tricompartment osteoarthritis of left knee: POD #0 status post left total knee arthroplasty by Dr. Sofia EBL 5ml; hemovac 10 ml Tolerated procedure well Pain/wound management per Ortho Activity and therapy as directed by Ortho Xarelto for DVT prophylaxis Encourage incentive spirometry Monitor H&H Pre operatively pt did have an UA + for UTI > 100k kleb. She denies sx including dysuria, increased freq/urg. Currently continues to be asymptomatic. She was treated on 03/01 Bactrim DS bid x 7 days. (3) Type II diabetes mellitus: A1c 10/2018 was 7.4, now 02/2019 6.7 Continue Lantus/NovoLog Glycemic pharmacist consulted-appreciate their input Fadia on hold (4) Hypertension: Blood pressure currently elevated 168/78 Likely in setting of postop On HCTZ and losartan as outpatient Hold HCTZ until volume status reassessed in a.m. Monitor closely (5) Hyperlipidemia: Continue statin (6) Hypothyroidism: Continue levothyroxine (7) TERRY on CPAP: Continue CPAP (8) Morbid obesity: BMI 43.3 Encourage lifestyle modifications (9) Asthma: Controlled, no acute exacerbation Continue Advair, as needed albuterol (10) DVT prophylaxis: xarelto - ortho Disposition: per primary Follow up: PCP Dr. Paez upon discharge Pt was seen and examined in collaboration with Dr. Zamorano, please see addendum Thank you for this consultation. We will follow the patient with you during their hospital stay. You can reach a member of the [facility] Hospitalist Team 06/11 via pager @ [phone]. Starting 03/31/19 pt will be under the care of Dr. Christensen Supervising Physician Co-Signing Physician Notes I have seen and examined the patient and have discussed the case with the provider above. I agree with the assessment and plan as stated. 78 yo F underwe nt L knee surgery this morning. She is doing well at this time, tolerating PO. Physical exam was unremarkable except for post-operative changes to left knee. No sensation loss on lower extremities and they are warm and well-perfused. Cont with current medical management as above. DO Jaun History of Present Illness Requesting Physician: Dr. Sofia Reason for Consultation: Post op medical management Attending Physician: Rahul Sofia MD History of Present Illness This is a 78-year-old female who has significant past medical history of IDDM 2, HTN, HLD, hypothyroidism, depression, obesity, TERRY on CPAP, Asthma who presents to [facility] for elective L TKA by Dr. Sofia. She is sitting up eating breakfast with no post op complaints. She has hx of IDDM2 controlled on insulin basal bolus regimen, last A1C 7.6 10/18/18. She wears CPAP regularly. Recently dx with low vit b12 placed on supplementation. Asthma controlled with advair, not requiring rescue inhaler usage. Currently denies f/c/s, chest pain, sob, n/v/d, abdominal pain, change in bowel or urinary habits. Daughter at bedside, offers no complaints. Allergies Allergy/AdvReac Type Severity Reaction Status Date / Time bee venom protein (honey bee) Allergy Intermediate Hives Verified 02/25/19 13:23 meperidine AdvReac Intermediate vertigo Unverified 02/27/19 12:58 alfentanil AdvReac Mild Abdominal Verified 02/27/19 12:58 cramps Home Medications Home Medications Medication Instructions Recorded Confirmed Type albuterol sulfate 0.63 mg INHALATION QID PRN 02/25/19 02/25/19 History albuterol sulfate 1 puff INHALATION Q6H PRN 02/25/19 03/31/19 History cholecalciferol (vitamin D3) 1,000 unit PO QAM 02/25/19 03/31/19 History [Vitamin D3] fluticasone propion-salmeterol 2 puff INHALATION BID 02/25/19 03/31/19 History [Advair HFA] hydrochlorothiazide 25 mg PO QAM 02/25/19 03/31/19 History insulin aspart U-100 [Novolog 1 unit SUBCUT TID 02/25/19 03/31/19 History Flexpen U-100 Insulin] insulin glargine [Lantus Solostar 40 - 50 unit SUBCUT BID 02/25/19 03/31/19 History U-100 Insulin] levothyroxine 100 mcg PO QAM 02/25/19 03/31/19 History losartan 50 mg PO QAM 02/25/19 03/31/19 History montelukast 10 mg PO PM 02/25/19 03/31/19 History omeprazole 20 mg PO BID 02/25/19 03/31/19 History simvastatin 20 mg PO HS 02/25/19 03/31/19 History sitagliptin [Januvia] 100 mg PO QAM 02/25/19 03/31/19 History tolterodine 4 mg PO QAM 02/25/19 03/31/19 History cyanocobalamin (vitamin B-12) 1,000 mcg PO DAILY 03/31/19 03/31/19 History Patient History Medical History (Updated 03/31/19 @ 11:09 by Barb Wilkinson PA-C) Asthma stable Diabetes mellitus, type 2 IDDM GERD (gastroesophageal reflux disease) controlled Hoarseness unchanged x 8+ months (?asthma/reflux related)- undergoing voice therapy (S otolarygnology) Hyperlipidemia Hypertension Hypothyroidism Morbid obesity TERRY on CPAP Osteoarthritis Sleep apnea CPAP Urinary urgency Surgical History (Updated 03/31/19 @ 11:09 by Barb Wilkinson PA-C) H/O total hysterectomy History of ankle surgery LEFT ANKLE FUSION History of carpal tunnel release RT History of colonoscopy History of surgery RT SALIVARY GLAND REMOVED History of tonsillectomy History of tooth extraction History of total knee replacement RT Family History Son Family history of diabetes mellitus Daughter Family history of diabetes mellitus Uncle Family history of diabetes mellitus Social History Preferred Language: Mauritian Communication Ability: Effective 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 Beliefs That Will Affect Care: None Current Living Situation: Family Current Living Situation Comment: SON LIVES WITH PT Other Information That Helps Us Care for You: No Feels Safe at Home: Yes Safety Concerns: Feels Safe At This Time Smoking Status: Former smoker Tobacco Type: cigarettes ; Do You Dip or Chew Tob acco: No ; Smoking End Date: QUIT OVER 40 YEARS AGO ; Second Hand Exposure: No ; Tobacco Cessation Education Requested by Patient: No Hx Alcohol Use: Yes Alcohol type: wine Hx Substance Use: No Review of Systems Review of Systems: All systems reviewed & are unremarkable except as noted in HPI & below Physical Exam Physical Exam: Constitutional: WD/WN, elderly, female, sitting up eating betsy kfast, vitals as above, NAD, pleasant, conversing easily Head: Normocephalic, Atraumatic Eyes: PERRL, conjunctivae normal, anicteric sclerae ENMT: external ear and nose normal, oropharynx normal Neck: trachea midline, no thyromegaly normal visual inspection Respiratory: normal respiratory effort, lungs clear to auscultation, no wheeze, rales, rhonchi. Normal insp/exp effort, no accessory muscle use Cardiovascular: RRR, no murmur, no edema Vessels: no JVD or carotid bruit Chest: normal inspection of chest Abdomen: normal bowel sounds, soft, nontender, no hepatosplenomegaly Musculoskeletal: no cyanosis or clubbing, extremities motor strength 5/5 , lower ext not assessed given anesthesia, LLE dressing CDI Skin: no rashes, warm and dry normal turgor Neurologic: PERRL, EOMI, accommodation nl, no face palsy, no dysarthria CN's II-XI intact bilaterally and moves all extremities Psychiatric: A+Ox3, euthymic affect Lymphatic: no cervical or axillary lymphadenopathy : deferred Results & Data Vital Signs (Past 12 Hours) Vital Signs Temp Pulse Pulse Pulse Resp BP Pulse Ox 03/31/19 10:19 75 18 168/84 H 95 03/31/19 09:45 36.4 C L 81 16 150/71 H 98 03/31/19 09:25 37.2 C 76 16 140/90 97 03/31/19 09:15 80 16 133/70 97 03/31/19 09:05 79 14 129/62 98 03/31/19 08:59 37.3 C 85 14 111/57 L 98 03/31/19 05:37 36.8 C 20 174/74 H 95 Laboratory Results Preop lab work 02/28/2019 H&H 11.8 and 36.2, WBC 9.43, platelet 313 Sodium 134, K3.7, BUN 21, creatinine 1.24, glucose 226, A1c 6.7 Pre op UA grew out Kleb > 100k Diagnostic Findings CXR: FINDINGS: Cardiomediastinal and hilar silhouettes are within normal limits. There is no pneumothorax, pleural effusion, focal airspace consolidation or overt pulmonary edema. Degenerative changes of the shoulders and spine. IMPRESSION: No acute process. Knee Xray: IMPRESSION: Expected findings following total left knee arthroplasty. Medications Administered Discontinued Medications Acetaminophen (Tylenol) 1,000 mg PO PREOP MELQUIADES Stop: 03/31/19 18:00 Last Admin: 03/31/19 06:15 Dose: 1,000 mg Documented by: [id number] Bacitracin (Bacitracin) Confirm Administered Dose 50,000 units .ROUTE .STK-MED ONE Stop: 03/31/19 06:43 Last Admin: 03/31/19 08:15 Dose: 50,000 units Documented by: [id number] Celecoxib (Celebrex) 200 mg PO PREOP MELQUIADES Stop: 03/31/19 18:00 Last Admin: 03/31/19 06:15 Dose: 200 mg Documented by: [id number] Famotidine (Pepcid) 20 mg PO PREOP MELQUIADES Stop: 03/31/19 18:00 Last Admin: 03/31/19 06:15 Dose: 20 mg Documented by: [id number] Gabapentin (Neurontin) 300 mg PO PREOP MELQUIADES Stop: 03/31/19 18:00 Last Admin: 03/31/19 06:15 Dose: 300 mg Documented by: [id number] Lactated Ringer's (Lr) 1,000 mls @ 15 mls/hr IV .Q24H MELQUIADES Stop: 03/31/19 18:00 Last Infusion: 03/31/19 07:16 Dose: 0 mls/hr Documented by: [id number] Admin: 03/31/19 06:03 Dose: 15 mls/hr Documented by: [id number] Cefazolin Sodium (Ancef 2000mg) 2,000 mg in 15 mls @ 3.75 mls/min IV PREOP MELQUIADES; Protocol Stop: 03/31/19 18:00 Last Admin: 03/31/19 07:16 Dose: 3.75 mls/min Documented by: [id number] Ropivacaine 150 mg/Bupivacaine HCl 30 ml/Epinephrine HCl 0.15 mg/Ketorolac Tromethamine 30 mg/Ketamine HCl 10 mg/ Clonidine HCl 100 mcg/ Sodium Chloride 92.35 mls @ 0 mls/hr INSTIL PREOP MELQUIADES Stop: 03/31/19 18:00 Last Admin: 03/31/19 07:51 Dose: 1 mls/hr Documented by: [id number] Tranexamic Acid (Tranexamic Acid / 0.7% Nacl) 1,000 mg in 100 mls @ 600 mls/hr IV TODAY@0600 MELQUIADES Stop: 03/31/19 06:09 Last Infusion: 03/31/19 07:16 Dose: 0 mls/hr Documented by: [id number] Admin: 03/31/19 07:02 Dose: 600 mls/hr Documented by: [id number] Tranexamic Acid (Tranexamic Acid / 0.7% Nacl) 1,000 mg in 100 mls @ 600 mls/hr IV TODAY@0600 MELQUIADES Stop: 03/31/19 06:09 Last Admin: 03/31/19 08:23 Dose: 600 mls/hr Documented by: [id number] Metoclopramide HCl (Reglan) 10 mg PO PREOP MELQUIADES Stop: 03/31/19 18:00 Last Admin: 03/31/19 06:15 Dose: 10 mg Documented by: [id number] Miscellaneous (Ortho Joint Anesthetic) Confirm Administered Dose 1 ea .ROUTE .STK-MED ONE Stop: 03/31/19 06:43 Last Admin: 03/31/19 07:50 Dose: Not Given Documented by: [id number] ECG Rate (beats per minute): 77 Rhythm: normal sinus Findings: + prolonged QT (484ms) Additional Comments: QTC has lengthened
[2019-03-31] MEDS ORDERED: hydroCHLOROthiazide 25 MG TAB PO SCH (11:00)
[2019-03-31] MEDS ORDERED: ALBUTEROL 0.083% NEBU SOLN 3 ML VIAL INH PRN (11:00)
--- NOTE | 2019-03-31 11:24 | Pharmacy Report ---
Glycemic Control Consultation - Date of Service March 31, 2019 - Scope Scope: Glycemic Pharmacist consulted by Juan Manuel Hackett on 04/03/19 for glycemic control and to write orders per [facility] inpatient glycemic control protocol - Objective Weight: 103.929 kg Accuchecks BSG (last 24hrs): 03/31/19 03/31/19 05:15 09:01 POC Glucose 97 100 H HbA1c: Hemoglobin A1c 6.7 % (4.5-5.6) H 02/28/19 09:50 - Recent Pertinent Medications Outpatient Anti-diabetic Regimen: * Lantus 50 units Qam, 40 units Qpm, Novolog ssi, Januvia 100 mg qpm * A1c = 6.7 % 03/03/19 Risk Factors for Insulin Resistance: * Recent Surgery: POD 0 * Diet: T2DM - Assessment & Plan Assessment & Plan: ASSESSMENT: * 78 year old female now POD 0 left total knee arthroplasty. PMHx significant for asthma, GERD, htn, hypothyroidism, osteoarthritis * Type 2 diabetic managed on basal/bolus insulin at home in addition to Januvia - pharmacy consulted for glycemic control postop * Follows [facility] clinic for diabetes management. Spoke with patient and confirms outpatient insulin dosing. Given copy of sliding scale she uses at home. Reports BSGs well controlled at home, but noticed recently that BSGs tend to decrease overnight. Reports some AM fastings in the 80s. * Last Lantus dose was yesterday (dinner time) of 40 units of insulin - reports no basal insulin given this morning PLAN FOR INPATIENT GLYCEMIC CONTROL: * Basal insulin - order Lantus 35 units for now (lunchtime) - reduced dose due to likely decreased po intake postop * Lantus hs per scale -For BSG less than <160 - give 25 units -For BSG 160-200 - give 30 units -For BSG greater than 200 - give 35 units * Bolus insulin * NovoLog per scale ACHS or Q6hrs while NPO * Goal Range: Low 120 mg/dL - High 160 mg/dL * Correction Factor: 20 mg/dL/unit * Nutritional / Prandial insulin per carb ratio of 1 unit per 6 grams CHO consumed PLAN FOR DISCHARGE: * Patient [facility] for diabetes management. Would recommend continuation with outpatient care. * Please note that the plan above was derived based on current level of insulin resistance and hospital stress. These recommendations are appropriate for in patient admission only. Plan of care upon discharge will need to be reassessed to avoid potential outpatient hypo/hyperglycemia. Thank you.
[2019-03-31] MEDS: SODIUM CHLORIDE 0.9% 1000ML 1,000 ML IV SCH ×2 (11:39→21:27)
[2019-03-31] MEDS: LOSARTAN POTASSIUM 50 MG TAB PO SCH (11:46)
[2019-03-31] MEDS: TOLTERODINE TARTRATE LA 4 MG CAPCR PO SCH (11:46)
[2019-03-31] MEDS: LEVOTHYROXINE SODIUM 100 MCG TABLET PO SCH (11:46)
[2019-03-31] MEDS ORDERED: INSULIN GLARGINE SOLOSTAR 100 UNITS/ML 3 ML PEN SC STA (12:41)
[2019-03-31] MEDS: ACETAMINOPHEN 500 MG TAB PO SCH ×2 (13:25→21:30)
[2019-03-31] MEDS: CHOLECALCIFEROL 1,000 UNITS TAB PO SCH (13:26)
[2019-03-31] MEDS: INSULIN ASPART 100 UNITS/ML 3 ML PEN SC SCH ×3 (13:29→21:30)
[2019-03-31] MEDS: CEFAZOLIN 2000MG 2,000 MG/15 ML SYR IV SCH ×2 (13:30→21:29)
[2019-03-31] MEDS ORDERED: IRBESARTAN 150 MG TAB PO SCH (21:00)
[2019-03-31] MEDS: FLUTICASONE/SALMETEROL 250/50 (ADVAIR) 14 PUFF/1 INHALER INH SCH (21:27)
[2019-03-31] MEDS: DOCUSATE SODIUM 100 MG CAP PO SCH (21:27)
[2019-03-31] MEDS: PANTOprazole 40 MG TAB PO SCH (21:28)
[2019-03-31] MEDS: SENNA 8.6 MG TAB PO SCH (21:28)
[2019-03-31] MEDS: SIMVASTATIN 20 MG TAB PO SCH (21:28)
[2019-03-31] MEDS: MONTELUKAST SODIUM 10 MG TABLET PO SCH (21:28)
[2019-03-31] MEDS: INSULIN GLARGINE SOLOSTAR 100 UNITS/ML 3 ML PEN SC SCH (21:29)
[2019-03-31] MEDS: OXYCODONE HCL IR 5 MG TAB (IMMEDIATE RELEASE) PO PRN (23:55)
[2019-04-01] MEDS: ACETAMINOPHEN 500 MG TAB PO SCH ×3 (05:38→21:48)
[2019-04-01] MEDS: LEVOTHYROXINE SODIUM 100 MCG TABLET PO SCH (05:38)
[2019-04-01 05:53] LABS: Hematocrit (blood only) 31.6 % (37-47); Hemoglobin 10.2 g/dL (12.0-16.0); Mean Corpuscular Hemoglobin 26.9 pg (25-34); Mean Corpuscular Hgb Conc 32.3 g/dL (32-36); Mean Corpuscular Volume 83.4 fL (80-100); Mean Platelet Volume 10.9 fL (7.4-10.4); Platelet Count 277 K/uL (130-400); RDW Coefficient of Variation 14.8 % (11.5-14.5); RDW Standard Deviation 45.2 fL (36.4-46.3); Red Blood Count 3.79 M/uL (4.2-5.4); White Blood Count 9.51 K/uL (4.8-10.8)
[2019-04-01 06:25] LABS: BUN Creatinine Ratio 21.4 (10-20); Creatinine Clr Calc Pharmacy 46.3 ml/min; Est GFR (African American) 55.1; Est GFR (Non-African American) 47.5; Potassium 4.2 mmol/L (3.5-5.1)
--- NOTE | 2019-04-01 08:00 | Orthopedic Progress Note ---
Date of Service April 01, 2019 Assessment & Plan (1) Status post total knee replacement, left: POD #1, Left TKA PT/ OT DVT poph- Xarelto D/C plans- Home w HH per medicine. Subjective POD #1, Left TKA, doing well. Denies SOB, CP, N/V. Pain controlled well. Wishes HH on D/C. Physical Exam Physical Exam: Left knee dressings c/d/i, no drainage. Drain in tact. Toes/ ankle mobile. N/V+. A&Ox3. Results & Data Vital Signs (Past 12 Hours) Vital Signs Temp Pulse Resp BP Pulse Ox 04/01/19 02:31 36.5 C 68 18 137/78 95 03/31/19 23:15 36.7 C 72 16 132/74 95
--- NOTE | 2019-04-01 08:01 | Anesthesiology Progress Note ---
Date of Service April 01, 2019 Anesthesia Post Procedure Vital Signs Vital Signs: Temp Pulse Pulse Pulse Resp BP Pulse Ox 04/01/19 02:31 36.5 C 68 18 137/78 95 03/31/19 23:15 36.7 C 72 16 132/74 95 03/31/19 15:28 36.5 C 69 18 144/84 H 97 03/31/19 12:45 75 18 145/73 H 98 03/31/19 11:59 74 16 116/70 97 03/31/19 10:55 74 18 168/78 H 97 03/31/19 10:19 75 18 168/84 H 95 03/31/19 09:45 36.4 C L 81 16 150/71 H 98 03/31/19 09:25 37.2 C 76 16 140/90 97 03/31/19 09:15 80 16 133/70 97 03/31/19 09:05 79 14 129/62 98 03/31/19 08:59 37.3 C 85 14 111/57 L 98 Pain Intensity Left Knee: Pain Intensity: 3 Notes Mental Status: alert / awake / arousable Nausea / Vomiting: adequately controlled Pain: adequately controlled Airway Patency, RR, SpO2: stable & adequate BP & HR: stable & adequate Hydration State: stable & adequate Neuraxial Anesthesia: was administered and sensory block resolved Anesthetic Complications: no major complications apparent and Pt Satisfied with anesthetic care
--- NOTE | 2019-04-01 08:51 | Pharmacy Report ---
Pharmacy Glycemic Short Note 2 - Date of Service April 01, 2019 - Glycemic Short BSG Results (Last 24 hours): 03/31/19 03/31/19 03/31/19 09:01 12:15 17:04 Glucose POC Glucose 100 H 168 H 151 H 03/31/19 04/01/19 04/01/19 20:58 05:22 08:15 Glucose 75 POC Glucose 155 H 87 ASSESSMENT: 04/01: * Patient received total of 73 units of insulin yesterday, of which 60 were basal insulin * Fasting BSG 87 mg/dL - lower than anticipated with dosage reduction of home doses. Will scale back further on basal insulin. Given 25 units this morning and add scale for tonight * Continue same CF/CR for now 03/31: * 78 year old female now POD 0 left total knee arthroplasty. PMHx significant for asthma, GERD, htn, hypothyroidism, osteoarthritis * Type 2 diabetic managed on basal/bolus insulin at home in addition to Januvia - pharmacy consulted for glycemic control postop * Follows [facility] clinic for diabetes management. Spoke with patient and confirms outpatient insulin dosing. Given copy of sliding scale she uses at home. Reports BSGs well controlled at home, but noticed recently that BSGs tend to decrease overnight. Reports some AM fastings in the 80s. * Last Lantus dose was yesterday (dinner time) of 40 units of insulin - reports no basal insulin given this morning PLAN FOR INPATIENT GLYCEMIC CONTROL: * Basal insulin - 25 units Qam * Lantus hs per scale -For BSG less than <160 - give 15 units -For BSG 160-200 - give 20 units -For BSG greater than 200 - give 25 units * Bolus insulin * NovoLog per scale ACHS or Q6hrs while NPO * Goal Range: Low 120 mg/dL - High 160 mg/dL * Correction Factor: 20 mg/dL/unit * Nutritional / Prandial insulin per carb ratio of 1 unit per 6 grams CHO consumed * Please note that the plan above was derived based on current level of insulin resistance and hospital stress. These recommendations are appropriate for inpatient admission only. Plan of care upon discharge will need to be reassessed to avoid potential outpatient hypo/hyperglycemia. Thank you.
--- NOTE | 2019-04-01 08:57 | Hospitalist Progress Note ---
Date of Service April 01, 2019 Assessment & Plan (1) Status post total knee replacement, left: (2) Tricompartment osteoarthritis of left knee: POD #1 S/P left total knee arthroplasty by Dr. Sofia EBMimi 5ml; total hemovac output #160ml Pain/wound management per Ortho Activity and therapy as directed by Ortho Xarelto for DVT prophylaxis Encourage incentive spirometry Hgb: 10.2 from 11.8 pre-op. Monitor H&H Pre operatively pt did have an UA + for UTI > 100k kleb. She denied urinary s ymptoms. Was treated on 03/01/19 with Bactrim DS bid x 7 days. No current urinary symptoms (3) Type II diabetes mellitus: A1c 10/2018 was 7.4, now 02/2019 6.7 Continue Lantus/NovoLog Glycemic pharmacist consulted-appreciate their input Fadia on hold (4) Hypertension: Blood pressure intitally elevated post op at 168/78. Overnight SBPs 130's-140's Continue losartan Resume HCTZ (5) Hyperlipidemia: Continue statin (6) Hypothyroidism: Continue levothyroxine (7) TERRY on CPAP: Continue CPAP (8) Morbid obesity: BMI 43.3 Encourage lifestyle modifications (9) Asthma: Controlled, no acute exacerbation Continue Advair, as needed albuterol (10) DVT prophylaxis: xarelto - ortho Disposition: per primary Follow up: PCP Dr. Paez upon discharge Pt was seen and examined in collaboration with Dr. Christensen, please see addendum Supervising Physician Co-Signing Physician Notes I, Dr. Frandy Christensen, have seen and examined the patient with physician resident assistant and agree with the assessment and plans as above and would like to comment that This is a 78 year old Female with Status post total left knee replacement on 03/31/19 On exam: general: no acute distress, patient reports she was able to bear weight and ambulate with therapist lower extremities: left leg in dressing, wound vac draining blood, ice pack over left knee, there are SCDs lungs: clear to auscultation bilaterally heart: regular rate abdomen: soft, nontender, positive bowel sounds Plans -patient reports that she may be discharged by orthopedics on 04/02/19 depending on progress -blood pressure is controlled, continue losartan and resume HCTZ -glucose management with insulin as per pharmacy glycemic control -no acute respiratory exacerbations on exam -CPAP with sleep -continued PT/OT while in the hospital -management of left knee wound and discharge disposition as per primary orthopedic surgery team -agree with recommendations by physician resident assistant to orthopedic surgery team My colleague Dr. Zamorano will be following the patient as hospitalist consult physician starting on 04/02/19 Subjective F/U. Post op day #1 s/p left TKA. Reports doing well today. Mild pain to left knee and feels pain controlled. Eating and drinking well without nausea or vomiting. Reports BM today. Denies fever/chills, diaphoresis, MANDEL, dizziness, syncope, vision changes, neck pain, CP, SOB, orthopnea, palpitations, cough, sore throat, choking, otalgia, rhinorrhea, abdominal pain, paresthesias, weakness, extremity weakness, rashes, urinary symptoms. Review of Systems Review of Systems: All systems reviewed & are unremarkable except as noted in HPI & below Physical Exam Physical Exam: General: no distress, obese Head: normocephalic, atraumatic Eyes: conjunctiva non-injected, anicteric ENT: normal inspection external ears, nose, mucous membranes moist Neck: supple, trachea midline Lungs: clear, no respiratory distress, no wheezing/rhonchi/rales CV: RRR, no murmur, no pretibial edema Abd: normal BS, soft, non-tender Ext: no calf tenderness; L leg with AVI wrap in place, drain in place with serosanguineous drainage; pedal pushes and pulls intact, distal pulses intact, sensation to light touch intact Neuro: A&O x 3, no focal deficits noted, normal affect Skin: warm, dry Results & Data Vital Signs (Past 12 Hours) Vital Signs Temp Pulse Resp BP Pulse Ox 04/01/19 07:30 36.7 C 66 18 137/78 99 04/01/19 02:31 36.5 C 68 18 137/78 95 03/31/19 23:15 36.7 C 72 16 132/74 95 Laboratory Results Short CBC 04/01/19 Range/Units 05:22 WBC 9.51 (4.8-10.8) K/uL Hgb 10.2 L (12.0-16.0) g/dL Hct 31.6 L (37-47) % Plt Count 277 (130-400) K/uL BMP 04/01/19 05:22 Sodium 138 Potassium 4.2 Chloride 108 H Carbon Dioxide 28 BUN 24 H Creatinine 1.11 Glucose 75 Calcium 8.0 L
[2019-04-01] MEDS: OXYCODONE HCL IR 5 MG TAB (IMMEDIATE RELEASE) PO PRN ×4 (09:09→23:45)
[2019-04-01] MEDS: CHOLECALCIFEROL 1,000 UNITS TAB PO SCH (09:10)
[2019-04-01] MEDS: DOCUSATE SODIUM 100 MG CAP PO SCH ×2 (09:10→21:48)
[2019-04-01] MEDS: FLUTICASONE/SALMETEROL 250/50 (ADVAIR) 14 PUFF/1 INHALER INH SCH ×2 (09:10→21:48)
[2019-04-01] MEDS: LOSARTAN POTASSIUM 50 MG TAB PO SCH ×2 (09:11→22:42)
[2019-04-01] MEDS: PANTOprazole 40 MG TAB PO SCH ×2 (09:11→21:49)
[2019-04-01] MEDS: TOLTERODINE TARTRATE LA 4 MG CAPCR PO SCH (09:11)
[2019-04-01] MEDS: MULTIVITAMIN TAB PO SCH (09:12)
[2019-04-01] MEDS: RIVAROXABAN 10 MG TABLET PO SCH (09:12)
[2019-04-01] MEDS: INSULIN GLARGINE SOLOSTAR 100 UNITS/ML 3 ML PEN SC SCH ×2 (09:14→22:19)
[2019-04-01] MEDS: INSULIN ASPART 100 UNITS/ML 3 ML PEN SC SCH ×4 (09:16→22:13)
[2019-04-01] MEDS: SENNA 8.6 MG TAB PO SCH ×2 (21:48→21:51)
[2019-04-01] MEDS: MONTELUKAST SODIUM 10 MG TABLET PO SCH (21:48)
[2019-04-01] MEDS: SIMVASTATIN 20 MG TAB PO SCH (21:49)
[2019-04-01] MEDS: hydroCHLOROthiazide 25 MG TAB PO SCH (22:42)
[2019-04-02 00:07] LABS: Appearance Urine Clear (Clear); Bilirubin Urine Negative (Negative); Blood Urine Negative (Negative); Color Urine Yellow; Glucose Urine UA Negative (Negative); Ketones Urine Negative (Negative); Leukocyte Esterase Urine Negative (Negative); Nitrite Urine Negative (Negative); Protein Urine Negative (Negative); Urobilinogen Urine Negative (Negative)
[2019-04-02] MEDS: OXYCODONE HCL IR 5 MG TAB (IMMEDIATE RELEASE) PO PRN ×4 (03:44→20:21)
[2019-04-02 05:52] LABS: Hematocrit (blood only) 34.2 % (37-47); Hemoglobin 11.1 g/dL (12.0-16.0); Mean Corpuscular Hemoglobin 27.2 pg (25-34); Mean Corpuscular Hgb Conc 32.5 g/dL (32-36); Mean Corpuscular Volume 83.8 fL (80-100); Mean Platelet Volume 10.9 fL (7.4-10.4); Platelet Count 306 K/uL (130-400); RDW Standard Deviation 45.8 fL (36.4-46.3); Red Blood Count 4.08 M/uL (4.2-5.4); White Blood Count 11.25 K/uL (4.8-10.8)
[2019-04-02] MEDS: ACETAMINOPHEN 500 MG TAB PO SCH ×3 (06:22→21:36)
[2019-04-02] MEDS: LEVOTHYROXINE SODIUM 100 MCG TABLET PO SCH (06:22)
[2019-04-02 06:28] LABS: BUN Creatinine Ratio 19.7 (10-20); Calcium 8.6 mg/dl (8.5-10.1); Creatinine Clr Calc Pharmacy 51.9 ml/min; Est GFR (African American) 63.3; Est GFR (Non-African American) 54.6
--- NOTE | 2019-04-02 06:58 | Orthopedic Progress Note ---
Date of Service April 02, 2019 Assessment & Plan (1) Status post total knee replacement, left: POD #2, Left TKA PT/ OT DVT poph- Xarelto D/C plans- Home w HH when medically stable- BP. per medicine. Subjective POD #2, Patient feels well. BP's have been elevated denies sob, cp, n/v Physical Exam Physical Exam: Left knee silverlon c/d/i. Toes/ ankle mobile. A&Ox3. Results & Data Vital Signs (Past 12 Hours) Vital Signs Temp Pulse Pulse Resp BP Pulse Ox 04/02/19 03:38 169/84 H 04/02/19 01:07 80 170/73 H 04/01/19 23:48 37.3 C 94 H 18 183/81 H 95 04/01/19 21:46 102 H 175/95 H 04/01/19 21:22 106 H 194/110 H 04/01/19 20:06 96 H 172/87 H
[2019-04-02] MEDS: TOLTERODINE TARTRATE LA 4 MG CAPCR PO SCH (07:08)
[2019-04-02] MEDS: LOSARTAN POTASSIUM 50 MG TAB PO SCH ×2 (07:09→20:23)
[2019-04-02] MEDS: hydroCHLOROthiazide 25 MG TAB PO SCH (07:09)
[2019-04-02] MEDS: PANTOprazole 40 MG TAB PO SCH ×2 (07:09→20:23)
[2019-04-02] MEDS: MULTIVITAMIN TAB PO SCH (07:09)
[2019-04-02] MEDS: CHOLECALCIFEROL 1,000 UNITS TAB PO SCH (07:09)
[2019-04-02] MEDS: FLUTICASONE/SALMETEROL 250/50 (ADVAIR) 14 PUFF/1 INHALER INH SCH ×2 (07:09→20:24)
[2019-04-02] MEDS: RIVAROXABAN 10 MG TABLET PO SCH (07:09)
[2019-04-02] MEDS: DOCUSATE SODIUM 100 MG CAP PO SCH ×2 (07:09→20:23)
[2019-04-02] MEDS: INSULIN GLARGINE SOLOSTAR 100 UNITS/ML 3 ML PEN SC SCH ×2 (08:31→20:32)
[2019-04-02] MEDS: INSULIN ASPART 100 UNITS/ML 3 ML PEN SC SCH ×4 (08:31→20:33)
[2019-04-02] MEDS ORDERED: Nursing to Pharmacy Communication ONE (08:36)
[2019-04-02] MEDS: ONDANSETRON 4 MG OD TAB PO PRN (08:47)
[2019-04-02] MEDS ORDERED: HydrALAZINE HCL 20 MG/ML VIAL IV STA ×2 (12:41→17:44)
--- NOTE | 2019-04-02 12:53 | Hospitalist Progress Note ---
Date of Service April 02, 2019 Assessment & Plan (1) Vomiting: Acute occurring this morning. Uncertain cause although patient thought it was something she ate. Nurse suggested that she took all of her medications on an empty stomach today. Antiemetics/supportive care as needed. (2) Hypertension: Uncontrolled. Losartan was increased from 50mg daily to 50mg BD with first PM dose given overnight. HCTZ was also reinitiated last night after having been off of it for a couple of days. This may be part of the cause, in addition to the diuretic effect causing polyuria. Nurse mentioned the patient was up and to the bathroom more than usual overnight. She also had some acute nausea and vomiting this morning. Repeat BP after feeling better was 180/81. Will treat with some hydralazine now and cont with the HCTZ and losartan as ordered. Would give her one more day to improve clinically prior to discharge. Low sodium diet. (3) Status post total knee replacement, left: POD#2-doing well from a knee perspective outside of the redness on the anterior left lower leg. Will cont to monitor this. Pain control and PT/OTper ortho. (4) Type II diabetes mellitus: Cont basal bolus insulin, current numbers are at goal. (5) Hyperlipidemia: statin per home regimen. (6) Hypothyroidism: Continue levothyroxine per home regimen (7) TERRY on CPAP: Continue CPAP (8) Morbid obesity: BMI 43.3 Encourage lifestyle modifications (9) Asthma: Controlled, no acute exacerbation Continue Advair, as needed albuterol per home regimen. (10) DVT prophylaxis: xarelto - ortho Full Code Dis[facility]: [facility] Subjective POD#2 s/p L knee arthroplasty. Nausea with two episodes of vomiting this morning, which has improved. She will try to eat something here soon. Hypertensive overnight and losartan was changed to 50 BID Generalized malaise overnight for several hours--had knee wrap taken off around 0300 and said she slept much better after that. Ambulated with PT this morning after the vomiting episode and did well. Some redness seen around her L operative site and area was warm to touch. Pt afebrile overnight and denied chills. I discussed this finding with both the nurse, Phoebe and the Ortho GILBERT-Juan Manuel. UA was negative for infection yeseterday but she had multiple episodes of urinary urgency overnight per nursing. Review of Systems Review of Systems: All systems reviewed & are unremarkable except as noted in HPI & below Physical Exam Physical Exam: CONSTITUTIONAL: obese, vitals as above, generally well- appearing, nasal CPAP in place. EYES: normal conjunctivae, no scleral icterus ENT: MMM RESPIRATORY: clear to auscultation bilaterally, no crackles, rales or wheezes, normal respiratory effort CARDIOVASCULAR: regular rate and rhythm, S1 and 2 heard without murmurs, gallops or rubs, no JVD, no peripheral edema GASTROINTESTINAL: soft, nontender, nondistended. MUSCULOSKELETAL: strength intact, gets up out of bed and ambulates with assist. L knee with wound and dressing in place and some surrounding erythema and wa rmth around the dressing. SKIN: warm and dry, surgical wound on R knee NEUROLOGIC: CN 2-12 grossly intact, no sensory deficit, normal cognition, normal speech. No gross focal deficits. PSYCHIATRIC: alert cooperative and oriented to person, place and time. Results & Data Vital Signs (Past 12 Hours) Vital Signs Temp Pulse Resp BP BP Pulse Ox 04/02/19 12:22 180/81 H 04/02/19 09:24 171/77 H 04/02/19 07:00 36.8 C 79 16 177/79 H 98 04/02/19 03:38 169/84 H 04/02/19 01:07 80 170/73 H Laboratory Results Short CBC 04/02/19 Range/Units 05:21 WBC 11.25 H (4.8-10.8) K/uL Hgb 11.1 L (12.0-16.0) g/dL Hct 34.2 L (37-47) % Plt Count 306 (130-400) K/uL BMP 04/02/19 05:21 Sodium 138 Potassium 4.0 Chloride 107 Carbon Dioxide 26 BUN 19 H Creatinine 0.99 Glucose 125 H Calcium 8.6 Urine 04/01/19 Range/Units 23:40 Urine Color Yellow Urine Appearance Clear (Clear) Urine pH 7.0 (4.5-7.5) Ur Specific [place] 1.010 (1.000-1.030) Urine Protein Negative (Negative) Urine Glucose (UA) Negative (Negative) Medications Administered Current Inpatient Medications Acetaminophen (Tylenol) 1,000 mg PO Q8 [place] Stop: 04/30/19 13:59 Last Admin: 04/02/19 06:22 Dose: 1,000 mg Documented by: Albuterol (Ventolin 0.083% 2.5mg/3ml) 2.5 mg INH QIDR PRN PRN Reason: Shortness Of Breath Stop: 04/30/19 10:59 Albuterol (Ventolin Hfa) 1 puffs INH Q6H PRN PRN Reason: Shortness Of Breath Stop: 04/30/19 10:06 Bisacodyl (Dulcolax) 10 mg IN DAILY PRN PRN Reason: Constipation Stop: 04/30/19 10:06 Dextrose (Dextrose 50%) 25 - 50 ml IV UD PRN; Protocol PRN Reason: Hypoglycemia Protocol Stop: 04/30/19 10:29 Diphenhydramine HCl (Benadryl Capsule) 25 mg PO Q8H PRN PRN Reason: Itching Stop: 04/30/19 10:06 Docusate Sodium (Colace) 100 mg PO BID [place] Stop: 04/30/19 20:59 Last Admin: 04/02/19 07:09 Dose: 100 mg Documented by: Glucagon (Glucagen) 1 mg IM UD PRN; Protocol PRN Reason: Hypoglycemia Protocol Stop: 04/30/19 10:29 Glucose (Glucose 40%) 15 - 30 gm PO UD PRN; Protocol PRN Reason: Hypoglycemia Protocol Stop: 04/30/19 10:29 Glucose (Dex4 Glucose) 4 - 8 tabs PO UD PRN; Protocol PRN Reason: Hypoglycemia Protocol Stop: 04/30/19 10:29 [facility]oth[facility] ([facility]z) [facility] Stop: 05/01/19 22:14 Last Admin: 04/02/19 07:09 Dose: 25 mg Documented by: Hydromorphone HCl (Dilaudid) 0.5 mg IV Q4H PRN PRN Reason: Pain Stop: 04/14/19 10:06 Insulin Aspart (Novolog Flexpen) 0 units SC [facility]; Protocol Stop: 04/30/19 11:29 Last Admin: 04/02/19 12:44 Dose: 3 units Documented by: Insulin Glargine (Lantus Solostar Pen) 0 units SC [facility]; Protocol Stop: 04/30/19 20:59 Last Admin: 04/01/19 22:19 Dose: 10 units Documented by: Insulin Glargine (Lantus Solostar Pen) 25 units SC QAM [facility]; Protocol Stop: 05/01/19 08:59 Last Admin: 04/02/19 08:31 Dose: 25 units Documented by: Levothyroxine Sodium (Synthroid) 100 mcg PO DAILYBB [facility] Stop: 04/30/19 10:59 Last Admin: 04/02/19 06:22 Dose: 100 mcg Documented by: Losartan Potassium (Cozaar) 50 mg PO BID [facility] Stop: 05/01/19 22:14 Last Admin: 04/02/19 07:09 Dose: 50 mg Documented by: Magnesium Hydroxide (Milk Of Magnesia) 30 ml PO Q6H PRN PRN Reason: Constipation Stop: 04/30/19 10:06 Miscellaneous (Carbohydrates For Hypoglycemia) 15 - 30 gm PO UD PRN PRN Reason: Hypoglycemia Treatment Stop: 04/30/19 10:29 Miscellaneous Information (Consult Glycemic Management Pharmacy) 1 ea N/A UD PRN PRN Reason: Consult Stop: 04/30/19 10:11 Montelukast Sodium (Singulair) 10 mg PO PM [facility] Stop: 04/30/19 20:59 Last Admin: 04/01/19 21:48 Dose: 10 mg Documented by: Multivitamins (Multivitamin Tab) 1 tab PO [facility] Stop: 05/01/19 08:59 Last Admin: 04/02/19 07:09 Dose: 1 tab Documented by: Naloxone HCl (Narcan) 0.1 mg IV Q5M PRN PRN Reason: Oversedation/Resp Depression Stop: 04/30/19 10:06 Ondansetron HCl (Zofran Odt) 4 mg PO Q6H PRN PRN Reason: EMESIS Stop: 05/02/19 08:39 Last Admin: 04/02/19 08:47 Dose: 4 mg Documented by: Oxycodone HCl (Roxicodone Immediate Rel) 5 - 10 mg PO Q4H PRN PRN Reason: Pain Stop: 04/14/19 10:06 Last Admin: 04/02/19 07:50 Dose: 10 mg Documented by: Pantoprazole Sodium (Protonix) 40 mg PO BID [facility] Stop: 04/30/19 20:59 Last Admin: 04/02/19 07:09 Dose: 40 mg Documented by: Rivaroxaban (Xarelto) 10 mg PO DAILY [facility] Stop: 05/01/19 08:59 Last Admin: 04/02/19 07:09 Dose: 10 mg Documented by: Fluticasone/Salmeterol (Advair Diskus 250/50) 1 puffs INH BID [place] Stop: 04/30/19 20:59 Last Admin: 04/02/19 07:09 Dose: 1 puffs Documented by: Sennosides (Senokot) 17.2 mg PO [facility] Stop: 04/30/19 20:59 Last Admin: 04/01/19 21:51 Dose: Not Given Documented by: Simvastatin (Zocor) 20 mg PO [facility] Stop: 04/30/19 20:59 Last Admin: 04/01/19 21:49 Dose: 20 mg Documented by: Tolterodine Tartrate (Detrol La) [facility] [place] Stop: 04/30/19 10:59 Last Admin: 04/02/19 07:08 Dose: 4 mg Documented by: Vitamin D (Vitamin D3) 2,000 units PO QAM [facility] Stop: 04/30/19 10:59 Last Admin: 04/02/19 07:09 Dose: 2,000 units Documented by:
[2019-04-02] MEDS: MONTELUKAST SODIUM 10 MG TABLET PO SCH (20:22)
[2019-04-02] MEDS: SIMVASTATIN 20 MG TAB PO SCH (20:23)
[2019-04-02] MEDS: SENNA 8.6 MG TAB PO SCH ×2 (20:23→20:27)
[2019-04-03] MEDS: ONDANSETRON 4 MG OD TAB PO PRN (04:24)
[2019-04-03 05:56] LABS: Basophils # (auto) 0.01 K/uL (0-0.2); Basophils % (auto) 0.1 %; Eosinophils # (auto) 0.41 K/uL (0-0.5); Eosinophils % (auto) 3.8 %; Hematocrit (blood only) 35.2 % (37-47); Hemoglobin 11.6 g/dL (12.0-16.0); Immature Granulocytes # (auto) 0.03 K/uL (0.00-0.02); Immature Granulocytes % (auto) 0.3 %; Lymphocytes # (auto) 2.62 K/uL (1.2-3.4); Mean Corpuscular Hemoglobin 27.2 pg (25-34); Mean Corpuscular Volume 82.6 fL (80-100); Neutrophils # (auto) 6.65 K/uL (1.4-6.5); Neutrophils % (auto) 60.8 %; Platelet Count 315 K/uL (130-400); RDW Coefficient of Variation 15.2 % (11.5-14.5); RDW Standard Deviation 45.8 fL (36.4-46.3); Red Blood Count 4.26 M/uL (4.2-5.4); White Blood Count 10.92 K/uL (4.8-10.8)
[2019-04-03] MEDS: ACETAMINOPHEN 500 MG TAB PO SCH ×2 (06:05→13:16)
[2019-04-03] MEDS: LEVOTHYROXINE SODIUM 100 MCG TABLET PO SCH (06:05)
[2019-04-03 06:27] LABS: BUN Creatinine Ratio 20.8 (10-20); Calcium 9.3 mg/dl (8.5-10.1); Creatinine Clr Calc Pharmacy 57.8 ml/min; Est GFR (African American) 71.9; Est GFR (Non-African American) 62.1; Magnesium 1.9 mg/dl (1.8-2.4); Potassium 3.8 mmol/L (3.5-5.1)
[2019-04-03] MEDS: hydroCHLOROthiazide 25 MG TAB PO SCH (08:05)
[2019-04-03] MEDS: LOSARTAN POTASSIUM 50 MG TAB PO SCH (08:05)
[2019-04-03] MEDS: DOCUSATE SODIUM 100 MG CAP PO SCH (08:42)
[2019-04-03] MEDS: RIVAROXABAN 10 MG TABLET PO SCH (08:42)
[2019-04-03] MEDS: TOLTERODINE TARTRATE LA 4 MG CAPCR PO SCH (08:42)
[2019-04-03] MEDS: CHOLECALCIFEROL 1,000 UNITS TAB PO SCH (08:42)
[2019-04-03] MEDS: FLUTICASONE/SALMETEROL 250/50 (ADVAIR) 14 PUFF/1 INHALER INH SCH (08:42)
[2019-04-03] MEDS: MULTIVITAMIN TAB PO SCH (08:42)
--- NOTE | 2019-04-03 08:42 | Orthopedic Progress Note ---
Date of Service April 03, 2019 Assessment & Plan (1) Status post total knee replacement, left: POD #3, Left TKA PT/ OT DVT poph- Xarelto D/C plans- Home w HH when cleared medically- BP. per medicine. Subjective POD #3, sates overall doing better this AM No more episodes of N/V. Denies SOB, CP, N/V. BP readings trending down a bit but still 160's/ 170's systolic. Physical Exam Physical Exam: Left knee siverlon dressing c/d/i, no drainage. Toes/ ankle mobile. No calf tenderness. A&Ox3. Results & Data Vital Signs (Past 12 Hours) Vital Signs Temp Pulse Resp BP Pulse Ox 04/03/ 07:09 36.9 C 83 16 163/77 H 96 04/02/19 23:41 36.8 C 89 16 158/77 H 95 04/02/19 21:38 163/77 H
[2019-04-03] MEDS: INSULIN GLARGINE SOLOSTAR 100 UNITS/ML 3 ML PEN SC SCH (08:43)
[2019-04-03] MEDS: PANTOprazole 40 MG TAB PO SCH (08:43)
[2019-04-03] MEDS: INSULIN ASPART 100 UNITS/ML 3 ML PEN SC SCH ×2 (08:43→13:17)
[2019-04-03] MEDS ORDERED: AMLODIPINE BESYLATE 5 MG TAB PO ONE (10:47)
[2019-04-04] MEDS ORDERED: AMLODIPINE BESYLATE 5 MG TAB PO SCH (09:00)
== END 2019-04-03 16:41 | disposition home health service (06) | DRG 470 ==
LOC: ASU 04:59 → 3E 09:05

== ENCOUNTER 2020-12-31 10:03 | Inpatient (IN) ==
[2020-12-31] MEDS ORDERED: ALBUT/IPRATROP 3MG/0.5MG NEB 3 ML VIAL NEB ONE (11:32)
[2020-12-31] MEDS ORDERED: ACETAMINOPHEN 500 MG TAB PO STA (11:32)
[2020-12-31] MEDS ORDERED: methylPREDNISolone 125 MG/2 ML VIAL IV STA (11:32)
--- NOTE | 2020-12-31 11:47 | Emergency Department Note ---
Impression & Plan Respiratory distress, SOB (shortness of breath), Pneumonia, COVID-19 ED Provider Note NAME: REESE CUTLER AGE: 80 SEX: F : 1940 ARRIVES VIA: Walk-In INFORMANT: [Patient] ED PROVIDER(S): [Alexandre Delcid MD] CHIEF COMPLAINT: Short of breath, cough HISTORY OF PRESENT ILLNESS: The patient is an 80-year-old female with a history of asthma. She states that 2 days ago, she began to feel wheezy and short of breath and developed a cough. Today, before arrival, she was quite short of breath and had a temperature of 102.6. She had a slight stuffy nose and slight sore throat. No vomiting. The patient tried her inhaler and nebulizer with minimal relief. She states that she is concerned that she has a viral infection that has caused an asthma flareup. She cannot remember ever having pneumonia but she has felt like this before. The patient is vaccinated against COVID-19. She has had no Covid exposures. REVIEW OF SYSTEMS: See HPI for pertinent positives and negatives. A total of ten systems were reviewed and were otherwise negative. PMHx/PSHx: See Below SOCIAL HISTORY: See Below. PHYSICAL EXAM: GENERAL: Patient is in mild distress, short of breath HEENT: No acute trauma, normocephalic atraumatic, mucous membranes moist, no nasal congestion, no scleral icterus. No throat erythema or exudate. NECK: No stridor, no adenopathy, no meningismus, trachea is midline. LUNGS: Wheezing bilaterally, dry cough noted, breath sounds equal. The patient is short of breath with speaking and speaks in shorter sentences. Mild respiratory distress noted. HEART: Without murmurs gallops or rubs, regular rate and rhythm. ABDOMEN: Soft, nontender, bowel sounds positive, no hernias, no peritonitis. EXTREMITIES: No cyanosis or edema, full range of motion of all the joints without pain or difficulty, no signs for acute trauma. NEUROLOGIC: Oriented x 3, no acute motor or sensory deficits, no focal weakness. SKIN: No rash, no jaundice, no diaphoresis. DIFFERENTIAL DIAGNOSIS: Reactive airway disease, pneumonia, pneumothorax, COPD, COVID-19, CHF, infection, cardiac ischemia, pulmonary embolism, bronchitis, musculoskeletal, gastrointestinal, as well as other pathologies. EMERGENCY DEPARTMENT COURSE/PROCEDURES: ECG: Indication was shortness of breath. The ECG shows a sinus tachycardia with a rate of 103. There is an old inferior infarct. There is some poor R wave progression. There is no ST elevation, no PVCs. The QTc is 453. Continuous Cardiac Monitoring: An order was placed for continuous cardiac monitoring. The monitor shows a rate of 86 with normal sinus rhythm. Critical Care Note: I have personally spent 51 minutes of critical care time in the direct management of this patient. This includes bedside care, inter pretation of diagnostic studies, and testing, discussion with consultants, patient, and family members, and other required patient management activities. This 51 minutes is in excess of all separately billable procedures. MEDICAL DECISION MAKING: There is no leukocytosis. There is a mild anemia present. There is is a normal platelet count. No significant electrolyte abnormality or kidney failure. Lactic acid level is slightly elevated which could be consistent with dehydration, infection or hypoxia. No concerning liver enzyme elevation. ECG shows a sinus tachycardia, no acute ischemia. Cardiac enzyme testing is 1 in is not consistent with acute cardiac injury. Covid testing returned positive. Chest x-ray does show some subtle infiltrates consistent with a potential viral pneumonia. On exam the patient appeared short of breath, she was speaking in short sentences. She was wheezing. The patient was aggressively managed. She was given IV Solu-Medrol, IV cefepime, a 1 hour DuoNeb. She was given oral Tylenol. The patient does feel improved since the above treatment. The patient presents dyspneic, she is suffering from a COVID-19 pneumonia. She has underlying asthma which makes the diagnosis more of a concern. She was wheezing quite a bit upon arrival. I spoke to the patient about a hospital stay, she was in agreement. I spoke with the rn case manager. The on-call hospitalist was consulted. Past Med/Surg History Medical History Asthma stable Diabetes mellitus, type 2 IDDM GERD (gastroesophageal reflux disease) controlled Hoarseness unchanged x 8+ months (?asthma/reflux related)- undergoing voice therapy (S otolarygnology) Hyperlipidemia Hypertension Hypothyroidism Morbid obesity TERRY on CPAP Osteoarthritis Sleep apnea CPAP Urinary urgency Surgical History H/O total hysterectomy History of ankle surgery LEFT ANKLE FUSION History of carpal tunnel release RT History of colonoscopy History of surgery RT SALIVARY GLAND REMOVED History of tonsillectomy History of tooth extraction History of total knee replacement RT Family History Son Family history of diabetes mellitus Daughter Family history of diabetes mellitus Uncle Family history of diabetes mellitus Social History Smoking Status: Former smoker Second Hand Exposure: No; Hx Alcohol Use: No Hx Substance Use: No Preferred Language: Serbian Communication Ability: Effective Visual Impairment: No Limitations Net Wpf Developer Required: No Beliefs That Will Affect Care: None Current Living Situation: Family Current Living Situation Comment: SON LIVES WITH PT Other Information That Helps Us Care for You: No Feels Safe at Home: Yes Safety Concerns: Feels Safe At This Time Assistive Devices: Cane, CPAP and Hearing Aid - Bilateral Allergies Allergies Allergy/AdvReac Type Severity Reaction Status Date / Time bee venom protein (honey bee) Allergy Intermediate Hives Verified 12/31/20 14:15 meperidine AdvReac Intermediate vertigo Unverified 12/31/20 14:15 alfentanil AdvReac Mild Abdominal Verified 12/31/20 14:15 cramps Home Meds Home Medications Medication Instructions Recorded Confirmed albuterol sulfate 0.63 mg/3 mL 0.63 mg INHALATION QID PRN 02/25/19 12/31/20 solution for nebulization albuterol sulfate 90 mcg/actuation 1 puff INHALATION Q6H PRN 02/25/19 12/31/20 aerosol inhaler cholecalciferol (vitamin D3) 25 1,000 unit PO QAM 02/25/19 12/31/20 mcg (1,000 unit) tablet (Vitamin D3) insulin aspart U-100 100 unit/mL 1 unit SUBCUT TID 02/25/19 12/31/20 (3 mL) subcutaneous pen (Novolog Flexpen U-100 Insulin aspart) insulin glargine 100 unit/mL (3 45 unit SUBCUT QAM 02/25/19 12/31/20 mL) subcutaneous pen (Lantus Solostar U-100 Insulin) montelukast 10 mg tablet 10 mg PO PM 02/25/19 12/31/20 omeprazole 20 mg capsule,delayed 20 mg PO DAILY 02/25/19 12/31/20 release cyanocobalamin (vitamin B-12) 1,000 mcg PO DAILY 03/31/19 12/31/20 1,000 mcg capsule allopurinol 100 mg tablet 100 mg PO DAILY 12/31/20 12/31/20 aspirin 81 mg tablet 81 mg PO DAILY 12/31/20 12/31/20 fluticasone 250 mcg-salmeterol 50 2 inh INHALATION BID 12/31/20 12/31/20 mcg/dose blistr powdr for inhalation (Advair Diskus) fluticasone propionate 50 2 spray INTRANASAL DAILY PRN 12/31/20 12/31/20 mcg/actuation nasal spray,suspension levothyroxine 112 mcg tablet 112 mcg PO DAILY 12/31/20 12/31/20 (Synthroid) losartan 100 mg tablet 100 mg PO DAILY 12/31/20 12/31/20 rosuvastatin 20 mg tablet 20 mg PO DAILY 12/31/20 12/31/20 trazodone 50 mg tablet 50 mg PO HS 12/31/20 12/31/20 Previous Rx's Medication Instructions Recorded acetaminophen 500 mg tablet 1,000 mg PO Q8 PRN #180 tab 04/03/19 amlodipine 10 mg tablet 10 mg PO DAILY #30 tab 04/03/19 Results & Data (ED) Vital Signs Vital Signs - 24 hr 12/31/20 10:36 12/31/20 11:46 12/31/20 12:25 Temperature 37.9 C H Temperature Source Temporal Artery Scan Pulse Rate 94 H Pulse Rate [Apical] 86 120 H Pulse Rhythm [Apical] Regular Respiratory Rate 20 16 18 Respiratory Effort / Characteristics Non-Labored Spontaneous Non-Labored Respiratory Depth Normal Blood Pressure 181/77 H Blood Pressure [Left Arm] Blood Pressure Mean 111 Blood Pressure Mean [Left Arm] Pulse Oximetry 95 95 96 Oxygen Delivery Method Room Air Room Air Oxygen Flow Rate Sepsis Recent Fever Within 48 Hours No Sepsis New/Unexplained Change in Mental Status N/A Sepsis Action Taken by Nursing No Action Required 12/31/20 12:30 12/31/20 13:21 12/31/20 14:06 Temperature Temperature Source Pulse Rate Pulse Rate [Apical] 108 H Pulse Rhythm [Apical] Regular Respiratory Rate 18 Respiratory Effort / Characteristics Short of Breath Respiratory Depth Blood Pressure Blood Pressure [Left Arm] 110/75 Blood Pressure Mean Blood Pressure Mean [Left Arm] 86 Pulse Oximetry 95 95 95 Oxygen Delivery Method Room Air Nasal Cannula Oxygen Flow Rate 2 Sepsis Recent Fever Within 48 Hours Sepsis New/Unexplained Change in Mental Status Sepsis Action Taken by [facility] Medications Current Medication List: was personally reviewed by me Laboratory Data Attestation: I reviewed the patient's lab results. Result diagrams: 12/31/20 12:08 12/31/20 12:08 Lab Results 12/31/20 12/31/20 12/31/20 Range/Units 11:50 11:50 12:08 WBC 6.76 (4.8-10.8) K/uL RBC 4.05 L (4.2-5.4) M/uL Hgb 11.4 L (12.0-16.0) g/dL Hct 34.9 L (37-47) % MCV 86.2 (80-100) fL MCH 28.1 (25-34) pg MCHC 32.7 (32-36) g/dL RDW Std Deviation 46.0 (36.4-46.3) fL RDW Coeff of Yarelis 14.5 (11.5-14.5) % Plt Count 290 (130-400) K/uL MPV 11.3 H (7.4-10.4) fL Immature Gran % (Auto) 0.1 % Neut % (Auto) 55.9 % Lymph % (Auto) 28.3 % [place] % (Auto) 15.1 % Eos % (Auto) 0.3 % Baso % (Auto) 0.3 % Neut # (Auto) 3.78 (1.4-6.5) K/uL Lymph # (Auto) 1.91 (1.2-3.4) K/uL [place] # (Auto) 1.02 H (0.11-0.59) K/uL Eos # (Auto) 0.02 (0-0.5) K/uL Baso # (Auto) 0.02 (0-0.2) K/uL Immature Gran # (Auto) 0.01 (0.00-0.02) K/uL ESR (0-30) mm/hr Sodium (136-145) mmol/L Potassium (3.5-5.1) mmol/L Chloride (98-107) mmol/L Carbon Dioxide (21-32) mmol/L Anion Gap (3-11) BUN (7-18) mg/dl Creatinine (0.6-1.2) mg/dl Est Cr Clr Drug Dosing ml/min Est GFR ( Amer) ml/min Est GFR (Non-Af Amer) ml/min BUN/Creatinine Ratio (10-20) Glucose (70-99) mg/dl Lactate (0.4-2.0) mmol/L Calcium (8.5-10.1) mg/dl Magnesium (1.8-2.4) mg/dl Total Bilirubin (0.2-1) mg/dl AST (15-37) U/L ALT (12-78) U/L Alkaline Phosphatase (45-117) U/L Troponin I (0-0.045) ng/ml Total Protein (6.4-8.2) gm/dl Albumin (3.4-5.0) gm/dl Globulin (2.5-4.0) gm/dl Albumin/Globulin Ratio (0.9-2) COVID-19 Eval [address] Covid[address] at [facility] SARS-CoV-2 (PCR) POSITIVE A* (Negative) 12/31/20 12/31/20 12/31/20 Range/Units 12:08 12:08 12:08 WBC (4.8-10.8) K/uL RBC (4.2-5.4) M/uL Hgb (12.0-16.0) g/dL Hct (37-47) % MCV (80-100) fL MCH (25-34) pg MCHC (32-36) g/dL RDW Std Deviation (36.4-46.3) fL RDW Coeff of Yarelis (11.5-14.5) % Plt Count (130-400) K/uL MPV (7.4-10.4) fL Immature Gran % (Auto) % Neut % (Auto) % Lymph % (Auto) % [place] % (Auto) % Eos % (Auto) % Baso % (Auto) % Neut # (Auto) (1.4-6.5) K/uL Lymph # (Auto) (1.2-3.4) K/uL [place] # (Auto) (0.11-0.59) K/uL Eos # (Auto) (0-0.5) K/uL Baso # (Auto) (0-0.2) K/uL Immature Gran # (Auto) (0.00-0.02) K/uL ESR 57 H (0-30) mm/hr Sodium 136 (136-145) mmol/L Potassium 4.2 (3.5-5.1) mmol/L Chloride 103 (98-107) mmol/L Carbon Dioxide 25 (21-32) mmol/L Anion Gap 9.0 (3-11) BUN 12 (7-18) mg/dl Creatinine 0.97 (0.6-1.2) mg/dl Est Cr Clr Drug Dosing 49.9 ml/min Est GFR ( Amer) 63.9 ml/min Est GFR (Non-Af Amer) 55.2 ml/min BUN/Creatinine Ratio 12.4 (10-20) Glucose 103 H (70-99) mg/dl Lactate 2.3 H* (0.4-2.0) mmol/L Calcium 9.0 (8.5-10.1) mg/dl Magnesium 2.0 (1.8-2.4) mg/dl Total Bilirubin 0.4 (0.2-1) mg/dl AST 17 (15-37) U/L ALT 18 (12-78) U/L Alkaline Phosphatase 83 (45-117) U/L Troponin I < 0.015 (0-0.045) ng/ml Total Protein 7.7 (6.4-8.2) gm/dl Albumin 3.3 L (3.4-5.0) gm/dl Globulin 4.4 H (2.5-4.0) gm/dl Albumin/Globulin Ratio 0.7 L (0.9-2) COVID-19 Eval Order SARS-CoV-2 (PCR) (Negative) 12/31/20 Range/Units 14:02 WBC (4.8-10.8) K/uL RBC (4.2-5.4) M/uL Hgb (12.0-16.0) g/dL Hct (37-47) % MCV (80-100) fL MCH (25-34) pg MCHC (32-36) g/dL RDW Std Deviation (36.4-46.3) fL RDW Coeff of Yarelis (11.5-14.5) % Plt Count (130-400) K/uL MPV (7.4-10.4) fL Immature Gran % (Auto) % Neut % (Auto) % Lymph % (Auto) % [place] % (Auto) % Eos % (Auto) % Baso % (Auto) % Neut # (Auto) (1.4-6.5) K/uL Lymph # (Auto) (1.2-3.4) K/uL [place] # (Auto) (0.11-0.59) K/uL Eos # (Auto) (0-0.5) K/uL Baso # (Auto) (0-0.2) K/uL Immature Gran # (Auto) (0.00-0.02) K/uL ESR (0-30) mm/hr Sodium (136-145) mmol/L Potassium (3.5-5.1) mmol/L Chloride (98-107) mmol/L Carbon Dioxide (21-32) mmol/L Anion Gap (3-11) BUN (7-18) mg/dl Creatinine (0.6-1.2) mg/dl Est Cr Clr Drug Dosing ml/min Est GFR ( Amer) ml/min Est GFR (Non-Af Amer) ml/min BUN/Creatinine Ratio (10-20) Glucose (70-99) mg/dl Lactate 2.1 H* (0.4-2.0) mmol/L Calcium (8.5-10.1) mg/dl Magnesium (1.8-2.4) mg/dl Total Bilirubin (0.2-1) mg/dl AST (15-37) U/L ALT (12-78) U/L Alkaline Phosphatase (45-117) U/L Troponin I (0-0.045) ng/ml Total Protein (6.4-8.2) gm/dl Albumin (3.4-5.0) gm/dl Globulin (2.5-4.0) gm/dl Albumin/Globulin Ratio (0.9-2) COVID-19 Eval Order SARS-CoV-2 (PCR) (Negative) Administered Medications Discontinued Medications Acetaminophen (Acetaminophen 500 Mg Tab) 1,000 mg PO NOW STA Stop: 12/31/20 11:33 Last Admin: 12/31/20 12:21 Dose: 1,000 mg Documented by: [id number] Albuterol (Albut/Ipratrop 3mg/0.5mg Neb 3 Ml Vial) 12 ml NEB ONE ONE Stop: 12/31/20 11:33 Last Admin: 12/31/20 11:45 Dose: 12 ml Documented by: [id number] Cefepime HCl (Maxipime) 2,000 mg in 20 mls @ 5 mls/min IV NOW STA; Protocol Stop: 12/31/20 13:16 Last Admin: 12/31/20 13:29 Dose: 5 mls/min Documented by: [id number] Remdesivir 200 mg/ Sodium (Chloride) 250 mls @ 125 mls/hr IV ONE STA; Protocol Stop: 12/31/20 17:46 Last Admin: 12/31/20 16:15 Dose: 125 mls/hr Documented by: [id number] Methylprednisolone (Methylprednisolone 125 Mg/2 Ml Vial) 60 mg IV NOW STA Stop: 12/31/20 11:33 Last Admin: 12/31/20 12:21 Dose: 60 mg Documented by: [id number] Imaging Data Radiologist's Impression: Chest X-Ray 12/31/20 11:32 XR chest 1V portable HISTORY: 80 years-old Female SOB acute shortness of breath COMPARISON: Chest radiographs 02/28/2019 TECHNIQUE: Portable AP view the chest FINDINGS: Cardiac silhouette is upper limits of normal in size. Ill-defined bibasilar and midlung interstitial opacities are new from comparison. There is no pneumothorax or large pleural effusion. Bones appear grossly intact. Calcified plaque of the thoracic aorta. IMPRESSION: Subtle mid and lower lung zone predominant interstitial coarsening is new from comparison. This may be on a chronic basis however should be correlated clinically to exclude a mild infectious or inflammatory pneumonitis. ACT 112: Negative or not required by law. The above report was generated using voice recognition software. It may contain grammatical, syntax or spelling errors. Electronically signed by: Junior Sarmiento M.D. 12/31/2020 12:18 PM Discharge Plan Visit Data Chief Complaint: Cough Stated Complaint: WHEEZING,COUGH,FEVER ED Provider: Alexandre Delcid Discharge Problem: Respiratory distress, SOB (shortness of breath), Pneumonia, COVID-19 Patient Disposition: Admitted As Inpatient Condition: Fair Discharge Instructions Interventions: ED Discharge Assessment Last Done: 12/31/20 15:15
--- NOTE | 2020-12-31 12:20 | XRay Report ---
XR chest 1V portable HISTORY: 80 years-old Female SOB acute shortness of breath COMPARISON: Chest radiographs 02/28/2019 TECHNIQUE: Portable AP view the chest FINDINGS: Cardiac silhouette is upper limits of normal in size. Ill-defined bibasilar and midlung interstitial opacities are new from comparison. There is no pneumothorax or large pleural effusion. Bones appear g rossly intact. Calcified plaque of the thoracic aorta. IMPRESSION: Subtle mid and lower lung zone predominant interstitial coarsening is new from comparison . This may be on a chronic basis however should be correlated clinically to exclude a mild infectious or inflammatory pneumonitis. ACT 112: Negative or not required by law. The above report was generated using voice recognition software. It may contain grammatical, syntax o r spelling errors. Electronically signed by: Junior Sarmiento M.D. 12/31/2020 12:18 PM
[2020-12-31 12:24] LABS: Basophils # (auto) 0.02 K/uL (0-0.2); Basophils % (auto) 0.3 %; Eosinophils # (auto) 0.02 K/uL (0-0.5); Eosinophils % (auto) 0.3 %; Hematocrit (blood only) 34.9 % (37-47); Hemoglobin 11.4 g/dL (12.0-16.0); Immature Granulocytes # (auto) 0.01 K/uL (0.00-0.02); Immature Granulocytes % (auto) 0.1 %; Lymphocytes # (auto) 1.91 K/uL (1.2-3.4); Lymphocytes % (auto) 28.3 %; Mean Corpuscular Hemoglobin 28.1 pg (25-34); Mean Corpuscular Hgb Conc 32.7 g/dL (32-36); Mean Corpuscular Volume 86.2 fL (80-100); Mean Platelet Volume 11.3 fL (7.4-10.4); Monocytes # (auto) 1.02 K/uL (0.11-0.59); Monocytes % (auto) 15.1 %; Neutrophils # (auto) 3.78 K/uL (1.4-6.5); Neutrophils % (auto) 55.9 %; Platelet Count 290 K/uL (130-400); RDW Coefficient of Variation 14.5 % (11.5-14.5); Red Blood Count 4.05 M/uL (4.2-5.4); White Blood Count 6.76 K/uL (4.8-10.8)
[2020-12-31 12:47] LABS: Alanine Aminotransferase 18 U/L (12-78); Albumin Level 3.3 gm/dl (3.4-5.0); Aspartate Aminotransferase 17 U/L (15-37); BUN Creatinine Ratio 12.4 (10-20); Blood Urea Nitrogen 12 mg/dl (7-18); Carbon Dioxide 25 mmol/L (21-32); Chloride 103 mmol/L (98-107); Creatinine Clr Calc Pharmacy 49.9 ml/min; Est GFR (African American) 63.9 ml/min; Est GFR (Non-African American) 55.2 ml/min; Glucose 103 mg/dl (70-99); Potassium 4.2 mmol/L (3.5-5.1); Sodium 136 mmol/L (136-145)
[2020-12-31 12:52] LABS: Albumin Globulin Ratio 0.7 (0.9-2); Alkaline Phosphatase 83 U/L (45-117); Bilirubin,Total 0.4 mg/dl (0.2-1); Globulin 4.4 gm/dl (2.5-4.0); Total Protein 7.7 gm/dl (6.4-8.2); Troponin I < 0.015 ng/ml (0-0.045)
[2020-12-31] MEDS ORDERED: CEFEPIME 2,000 MG/20 ML VIAL IV STA (13:13)
--- NOTE | 2020-12-31 15:11 | History & Physical Report ---
Date of Service December 31, 2020 Assessment & Plan (1) Pneumonia due to COVID-19 virus: (2) Asthma: Plan: Pt is 80 y/o F with PMH DM II, HTN, dyslipidemia, PAD, asthma, hypothyroidism, depression, anxiety presented to ER with complaint of congestion, shortness of breath and wheezing x2 days. Fever 102F. + COVID-19 vaccination. In ER T: 37.9, P 94, R: 20, BP 181/77, 90% on room air up to 95% on 2L. +COVID 19 PCR CXR: Subtle mid and lower lung zone predominant interstitial coarsening is new from comparison In ER given IV Tylenol, hour-long albuterol neb, cefepime, Solu-Medrol 60 mg IV Isolation precautions ESR, CRP, ferritin, procalcitonin pending Initial lactate 2.3 --> 2.1 Albuterol nebs Supplemental oxygen as needed Dexamethasone, remdesivir Incentive spirometry, flutter valve Monitor labs (3) Type II diabetes mellitus: Plan: Insulin-dependent A1c: 7.3 on 10/28/2020 Continue home Lantus NovoLog sliding scale per protocol (4) Hypertension: Plan: Stable Continue amlodipine (5) Hypothyroidism: Plan: Continue levothyroxine (6) Sleep apnea: Plan: CPAP at bedtime DVT Prophylaxis Lovenox SQ Full Code as per discussion with pt Follows with Dr Paez for routine care Pt was seen and care coordinated with Dr Rushing. See addendum History of Present Illness Chief Complaint: SOB Primary Care Provider: Maria Isabel Paez, DO Pt is 80 y/o F with PMH DM II, HTN, dyslipidemia, PAD, asthma, hypothyroidism, depression, anxiety presented to ER with complaint of congestion, shortness of breath and wheezing x2 days. Then reports developed fever 102F. Patient using albuterol inhaler and nebulizer without relief. Reports increased shortness of breath today so presented to ER. Patient reports had for COVID-19 vaccination. Denies any known ill contacts. Denies diaphoresis, N/V/D/C, MANDEL, dizziness, syncope, vision changes, neck pain, CP, palpitations, sore throat, choking, otalgia, rhinorrhea, abdominal pain, paresthesias, weakness, extremity weakness, extremity edema, rashes, urinary symptoms. In ER T: 37.9, P 94, R: 20, BP 181/77, 90% on room air up to 95% on 2L. In ER given IV Tylenol, hour-long albuterol neb, cefepime, Solu-Medrol 60 mg IV. COVID 19 Positive. CXR: Subtle mid and lower lung zone predominant interstitial coarsening is new from comparison Allergies Allergy/AdvReac Type Severity Reaction Status Date / Time bee venom protein (honey bee) Allergy Intermediate Hives Verified 12/31/20 14:15 meperidine AdvReac Intermediate vertigo Unverified 12/31/20 14:15 alfentanil AdvReac Mild Abdominal Verified 12/31/20 14:15 cramps Home Medications Medication Instructions Recorded Confirmed Type albuterol sulfate 0.63 mg/3 mL 0.63 mg INHALATION QID PRN 02/25/19 12/31/20 History solution for nebulization albuterol sulfate 90 mcg/actuation 1 puff INHALATION Q6H PRN 02/25/19 12/31/20 History aerosol inhaler cholecalciferol (vitamin D3) 25 1,000 unit PO QAM 02/25/19 12/31/20 History mcg (1,000 unit) tablet (Vitamin D3) insulin aspart U-100 100 unit/mL 1 unit SUBCUT TID 02/25/19 12/31/20 History (3 mL) subcutaneous pen (Novolog Flexpen U-100 Insulin aspart) insulin glargine 100 unit/mL (3 45 unit SUBCUT QAM 02/25/19 12/31/20 History mL) subcutaneous pen (Lantus Solostar U-100 Insulin) montelukast 10 mg tablet 10 mg PO PM 02/25/19 12/31/20 History omeprazole 20 mg capsule,delayed 20 mg PO DAILY 02/25/19 12/31/20 History release cyanocobalamin (vitamin B-12) 1,000 mcg PO DAILY 03/31/19 12/31/20 History 1,000 mcg capsule acetaminophen 500 mg tablet 1,000 mg PO Q8 PRN #180 tab 04/03/19 12/31/20 Rx amlodipine 10 mg tablet 10 mg PO DAILY #30 tab 04/03/19 12/31/20 Rx allopurinol 100 mg tablet 100 mg PO DAILY 12/31/20 12/31/20 History aspirin 81 mg tablet 81 mg PO DAILY 12/31/20 12/31/20 History fluticasone 250 mcg-salmeterol 50 2 inh INHALATION BID 12/31/20 12/31/20 History mcg/dose blistr powdr for inhalation (Advair Diskus) fluticasone propionate 50 2 spray INTRANASAL DAILY PRN 12/31/20 12/31/20 History mcg/actuation nasal spray,suspension levothyroxine 112 mcg tablet 112 mcg PO DAILY 12/31/20 12/31/20 History (Synthroid) losartan 100 mg tablet 100 mg PO DAILY 12/31/20 12/31/20 History rosuvastatin 20 mg tablet 20 mg PO DAILY 12/31/20 12/31/20 History trazodone 50 mg tablet 50 mg PO HS 12/31/20 12/31/20 History Past Med/Surg History Medical History Asthma stable Diabetes mellitus, type 2 IDDM GERD (gastroesophageal reflux disease) controlled Hoarseness unchanged x 8+ months (?asthma/reflux related)- undergoing voice therapy ([facility] otolarygnology) Hyperlipidemia Hypertension Hypothyroidism Morbid obesity TERRY on CPAP Osteoarthritis Sleep apnea CPAP Urinary urgency Surgical History H/O total hysterectomy History of ankle surgery LEFT ANKLE FUSION History of carpal tunnel release RT History of colonoscopy History of surgery RT SALIVARY GLAND REMOVED History of tonsillectomy History of tooth extraction History of total knee replacement RT Family History Son Family history of diabetes mellitus Daughter Family history of diabetes mellitus Uncle Family history of diabetes mellitus Social History Smoking Status: Former smoker Second Hand Exposure: No; Hx Alcohol Use: No Hx Substance Use: No Preferred Language: Bahraini Communication Ability: Effective Visual Impairment: No Limitations Compliance Administrator Required: No Beliefs That Will Affect Care: None Current Living Situation: Family Current Living Situation Comment: SON LIVES WITH PT Other Information That Helps Us Care for You: No Feels Safe at Home: Yes Safety Concerns: Feels Safe At This Time Assistive Devices: Cane, CPAP and Hearing Aid - Bilateral Review of Systems Review of Systems: All systems reviewed & are unremarkable except as noted in HPI & below Physical Exam Physical Exam: PE per Dr Rushing Results & Data Results & Data ([facility]) Vital Signs (Past 12 Hours) Vital Signs Temp Pulse Pulse Resp BP BP Pulse Ox 12/31/20 14:06 108 H 18 110/75 95 12/31/20 13:21 95 12/31/20 12:30 95 12/31/20 12:25 120 H 18 96 12/31/20 11:46 86 16 95 12/31/20 10:36 37.9 C H 94 H 20 181/77 H 95 Laboratory Results Short CBC 12/31/20 Range/Units 12:08 WBC 6.76 (4.8-10.8) K/uL Hgb 11.4 L (12.0-16.0) g/dL Hct 34.9 L (37-47) % Plt Count 290 (130-400) K/uL BMP 12/31/20 12:08 Sodium 136 Potassium 4.2 Chloride 103 Carbon Dioxide 25 BUN 12 Creatinine 0.97 Glucose 103 H Calcium 9.0 Cardiac Enzymes 12/31/20 Range/Units 12:08 Troponin I < 0.015 (0-0.045) ng/ml Liver Function 12/31/20 Range/Units 12:08 Total Bilirubin 0.4 (0.2-1) mg/dl AST 17 (15-37) U/L ALT 18 (12-78) U/L Alkaline Phosphatase 83 (45-117) U/L Albumin 3.3 L (3.4-5.0) gm/dl Diagnostic Findings Chest X-Ray 12/31/20 11:32 XR chest 1V portable HISTORY: 80 years-old Female SOB acute shortness of breath COMPARISON: Chest radiographs 02/28/2019 TECHNIQUE: Portable AP view the chest FINDINGS: Cardiac silhouette is upper limits of normal in size. Ill-defined bibasilar and midlung interstitial opacities are new from comparison. There is no pneumothorax or large pleural effusion. Bones appear grossly intact. Calcified plaque of the thoracic aorta. IMPRESSION: Subtle mid and lower lung zone predominant interstitial coarsening is new from comparison. This may be on a chronic basis however should be correlated clinically to exclude a mild infectious or inflammatory pneumonitis. ACT 112: Negative or not required by law. The above report was generated using voice recognition software. It may contain grammatical, syntax or spelling errors. Electronically signed by: Junior Sarmiento M.D. 12/31/2020 12:18 PM Code Status & VTE Plan VTE Prophylaxis Plan VTE Prophylaxis will be ordered: Yes Supervising Physician Co-Signing Physician Notes Attending addendum: The patient was seen and examined in emergency room She has asthma and has been complaining of wheezing with shortness of breath since Sunday last Has had fever with chills Noted to be Covid positive in the emergency room with some chest x-ray changes suggestive of viral pneumonia On examination Sitting at the edge of the bed with minimal symptoms Hemodynamically stable with tachycardia of 101 likely secondary to use of nebulized bronchodilator Chestdecreased breath sounds at the right base otherwise clear HeartS1-S2, regular Abdomenbenign Extremitiesnegative for edema Her admission labs, EKG and imaging studies reviewed Has COVID-19 infection and is complicated by asthma exacerbation Noted to be hypoxic on admission Started with intravenous dexamethasone and remdesivir and will get nebulized bronchodilator Agree with assessment and plan as outlined above by ESTHER Cage Dr
[2020-12-31] MEDS ORDERED: REMDESIVIR 200 MG in SODIUM CHLORIDE 0.9% 210 ML IV STA (15:47)
--- NOTE | 2020-12-31 16:17 | Electrocardiogram Report ---
Test Reason : Blood Pressure : / mmHG Vent. Rate : 103 BPM Atrial Rate : 103 BPM P-R Int : 146 ms QRS Dur : 074 ms QT Int : 346 ms P-R-T Axes : 029 -43 025 degrees QTc Int : 453 ms Sinus tachycardia Left axis deviation Inferior infarct , age undetermined Poor R wave progression, consider anterior NM vs. lead placement vs. LVH Abnormal ECG When compared with ECG of 19-FEB-2020 11:48, Inferior infarct is now Present Nonspecific T wave abnormality no longer evident in Anterior leads Confirmed by Bony Houston ([id number]) on 12/31/2020 4:16:34 PM Referred By: Confirmed By:Bony Houston
[2020-12-31] MEDS ORDERED: PHARMACY GLYCEMIC MGMT CONSULT PRN (16:43)
[2020-12-31] MEDS ORDERED: DEXTROSE 50% 50 ML SYRINGE IV PRN (17:29)
[2020-12-31] MEDS ORDERED: GLUCOSE 40% GEL 15 GM TUBE PO PRN (17:29)
[2020-12-31] MEDS ORDERED: ALBUTEROL 0.083% NEBU SOLN 3 ML VIAL NEB PRN (17:29)
[2020-12-31] MEDS ORDERED: ONDANSETRON INJ 2 MG/ML 2 ML VIAL IV PRN (17:29)
[2020-12-31] MEDS ORDERED: GLUCOSE 10 TABS/TUBE PO PRN (17:29)
[2020-12-31] MEDS ORDERED: CARBOHYDRATES FOR HYPOGLYCEMIA PO PRN (17:29)
[2020-12-31] MEDS ORDERED: FLUTICASONE PROPIONATE NA SPR 16 GM BTL NAE PRN (17:29)
[2020-12-31] MEDS ORDERED: GLUCAGON FOR INJ 1 MG VIAL SQ PRN (17:29)
[2020-12-31 19:02] LABS: C Reactive Protein 1.4 mg/dl (0-0.29); Ferritin 44.7 ng/ml (8-388)
[2020-12-31] MEDS: FLUTICASONE/VILANTEROL 200/25MCG 14 PUFFS/INHALER INH SCH (20:26)
[2020-12-31] MEDS: traZODone HCL 50 MG TAB PO SCH (20:26)
[2020-12-31] MEDS: ENOXAPARIN INJ 40 MG/0.4 ML SYR SQ SCH (20:26)
[2020-12-31] MEDS: MONTELUKAST SODIUM 10 MG TABLET PO SCH (20:26)
[2020-12-31] MEDS ORDERED: INSULIN GLARGINE SOLOSTAR 100 UNITS/ML 3 ML PEN SC SCH (21:00)
[2020-12-31] MEDS: INSULIN ASPART 100 UNITS/ML 3 ML PEN SC SCH ×2 (21:12→21:13)
[2020-12-31] MEDS: ACETAMINOPHEN 325 MG TAB PO PRN (22:00)
[2021-01-01] MEDS: INSULIN ASPART 100 UNITS/ML 3 ML PEN SC SCH ×6 (00:10→20:23)
[2021-01-01] MEDS: LEVOTHYROXINE SODIUM 112 MCG TABLET PO SCH (05:38)
[2021-01-01 06:16] LABS: Hematocrit (blood only) 34.7 % (37-47); Hemoglobin 11.1 g/dL (12.0-16.0); Mean Corpuscular Hemoglobin 27.3 pg (25-34); Mean Corpuscular Volume 85.3 fL (80-100); Mean Platelet Volume 11.4 fL (7.4-10.4); Platelet Count 270 K/uL (130-400); RDW Coefficient of Variation 14.2 % (11.5-14.5); RDW Standard Deviation 44.5 fL (36.4-46.3); Red Blood Count 4.07 M/uL (4.2-5.4); White Blood Count 5.13 K/uL (4.8-10.8)
[2021-01-01 06:54] LABS: BUN Creatinine Ratio 23.7 (10-20); Creatinine Clr Calc Pharmacy 52.4 ml/min; Est GFR (African American) 68.2 ml/min; Est GFR (Non-African American) 58.8 ml/min; Potassium 3.9 mmol/L (3.5-5.1)
[2021-01-01 08:07] LABS: Estimated Average Glucose 174 mg/dl; Hemoglobin A1C 7.7 % (4.5-5.6)
[2021-01-01] MEDS: INSULIN GLARGINE SOLOSTAR 100 UNITS/ML 3 ML PEN SC SCH (08:55)
[2021-01-01] MEDS: INSULIN HUMAN NPH SC SCH (08:55)
[2021-01-01] MEDS: dexAMETHasone 6 MG in SYRINGE 0 ML IV SCH (08:58)
[2021-01-01] MEDS: CYANOCOBALAMIN 500 MCG TABLET (VITAMIN B-12) PO SCH (08:58)
[2021-01-01] MEDS: LOSARTAN POTASSIUM 50 MG TAB PO SCH (08:58)
[2021-01-01] MEDS: amLODIPine BESYLATE 5 MG TAB PO SCH (08:59)
[2021-01-01] MEDS: PANTOprazole 40 MG TAB PO SCH (08:59)
[2021-01-01] MEDS: allopurinoL 100 MG TAB PO SCH (08:59)
[2021-01-01] MEDS: CHOLECALCIFEROL 1,000 UNITS 25 MCG TAB PO SCH (08:59)
[2021-01-01] MEDS: ROSUVASTATIN CALCIUM 20 MG TAB PO SCH (08:59)
[2021-01-01] MEDS: ASPIRIN 81 MG ECTAB PO SCH (08:59)
--- NOTE | 2021-01-01 09:34 | Pharmacy Report ---
Pharmacy Glycemic Short Note 2 - Date of Service January 01, 2021 - Glycemic Short BSG Results (Last 24 hours): 12/31/20 12/31/20 12/31/20 12:08 15:33 20:20 Glucose 103 H POC Glucose 167 H 267 H 12/31/20 01/01/21 01/01/21 23:45 03:24 05:56 Glucose 180 H POC Glucose 254 H 200 H 01/01/21 07:45 Glucose POC Glucose 164 H OUTPATIENT ANTIDIABETIC REGIMEN: * Lantus 45 units SQ AM * NovoLog per scale ACHS * A1c = 7.7% on 01/01/21 ASSESSMENT: * 80yo T2DM female with adequate outpatient control per recent A1c * Pt with steroid induced hyperglycemia secondary to daily steroids for COVID-19 infection * Will continue outpatient insulin regimen and add weight based NPH for daily dexamethasone. PLAN FOR INPATIENT GLYCEMIC CONTROL: * Basal insulin * Lantus 45 units SQ daily in AM (outpatient dosing) * Steroid induced hyperglycemia * NPH 20 units (0.3 units/kg adjusted body weight) SQ daily with Dexamethasone. HOLD if dex held/dc * Bolus insulin * NovoLog per scale ACHS or Q6hrs while NPO * Goal Range: Low 120 mg/dL - High 150 mg/dL * Correction Factor: 20 mg/dL/unit * Nutritional / Prandial insulin per carb ratio of 1 unit per 7 grams CHO consumed PLAN FOR DISCHARGE: * A1c is in goal range. No changes needed at DC
[2021-01-01] MEDS: REMDESIVIR 100 MG in SODIUM CHLORIDE 0.9% 230 ML IV SCH (13:14)
[2021-01-01] MEDS: SODIUM CHLORIDE 0.9% 10ML FLUSH IV SCH (14:20)
--- NOTE | 2021-01-01 15:40 | Hospitalist Progress Note ---
Date of Service January 01, 2021 Assessment & Plan (1) Pneumonia due to COVID-19 virus: Plan: Pt is 80 y/o F with PMH DM II, HTN, dyslipidemia, PAD, asthma, hypothyroidism, depression, anxiety presented to ER with complaint of congestion, shortness of breath and wheezing x2 days. Fever 102F. + COVID-19 vaccination. In ER T: 37.9, P 94, R: 20, BP 181/77, 90% on room air up to 95% on 2L. +COVID 19 PCR CXR: Subtle mid and lower lung zone predominant interstitial coarsening is new from comparison In ER given IV Tylenol, hour-long albuterol neb, cefepime, Solu-Medrol 60 mg IV Isolation precautions for COVID-19 infection She is vaccinated for COVID-19 Admission CRP was 1.40,Procalcitonin less than 0.05 and ESR was 57 Initial lactate 2.3 --> 2.1 Albuterol nebs Supplemental oxygen as needed Started with IV dexamethasone and remdesivir Incentive spirometry, flutter valve proning if tolerated Clinically much better (2) Asthma: Plan: She feels her shortness of breath is due to asthma exacerbation Which is complicating COVID-19 infection We will have nebulized bronchodilator and her other asthma medication will be continued If she does not require any oxygen for the next 24 to 48 hours and symptomatically better we will let her go home (3) Type II diabetes mellitus: Plan: Insulin-dependent A1c: 7.3 on 10/28/2020 Continue home Lantus NovoLog sliding scale per protocol (4) Hypertension: Plan: Stable Continue amlodipine (5) Hypothyroidism: Plan: Continue levothyroxine (6) Sleep apnea: Plan: CPAP at bedtime DVT Prophylaxis Lovenox SQ Full Code as per discussion with pt Follows with Dr Paez for routine care Admission and Anticipated Discharge Date Admission Date: December 31, 2020 Subjective 01/01/2021 The patient was seen and examined in telemetry unit She has been feeling much better and has been requiring up to 2 L of oxygen to maintain saturation Has cough with minimal wheezing Review of Systems Review of Systems: All systems reviewed and are unremarkable except as noted below Respiratory: Cough with wheezing and shortness of breath Physical Exam Physical Exam: Lying in bed comfortably Constitutional: well developed, well nourished, + ill appearing and + obese Eyes: PERRL, conjunctivae normal, anicteric sclerae ENMT: external ear and nose normal, oropharynx normal Neck: trachea midline, no thyromegaly Respiratory: + cough; no respiratory distress Auscultation: + diminished lung sounds and + wheezes (Occasional wheezing ) Gastrointestinal (Abdomen): Inspection/Auscultation: normal bowel sounds; abdomen not distended Percussion/Palpation: abdomen soft; abdomen nontender Musculoskeletal: No acute arthritis in any joint Neurologic: Alert, awake and oriented x3. No focal sensory and motor deficit appreciated Results & Data Results & Data ([facility]) Vital Signs (Past 12 Hours) Vital Signs Temp Pulse Pulse Resp BP BP Pulse Ox 01/01/21 14:53 36.6 C 66 11 L 119/68 99 01/01/21 14:25 93 01/01/21 12:05 36.6 C 59 L 21 146/80 H 98 01/01/21 07:46 36.7 C 85 22 138/83 93 01/01/21 07:00 66 Laboratory Results Short CBC 01/01/21 Range/Units 05:56 WBC 5.13 (4.8-10.8) K/uL Hgb 11.1 L (12.0-16.0) g/dL Hct 34.7 L (37-47) % Plt Count 270 (130-400) K/uL BMP 01/01/21 05:56 Sodium 135 L Potassium 3.9 Chloride 105 Carbon Dioxide 22 BUN 22 H D Creatinine 0.92 Glucose 180 H Calcium 9.0 Medications Administered Current Inpatient Medications Acetaminophen (Acetaminophen 325 Mg Tab) 650 mg PO Q4H PRN PRN Reason: Pain or Fever Stop: 01/30/21 17:28 Last Admin: 12/31/20 22:00 Dose: 650 mg Documented by: Albuterol (Albuterol 0.083% Nebu Soln 3 Ml Vial) 2.5 mg NEB Q6R PRN PRN Reason: Shortness Of Breath Or Wheezing Stop: 01/30/21 17:28 Allopurinol (Allopurinol 100 Mg Tab) 100 mg PO DAILY [facility] Stop: 01/31/21 08:59 Last Admin: 01/01/21 08:59 Dose: 100 mg Documented by: Amlodipine Besylate (Amlodipine Besylate 5 Mg Tab) 10 mg PO DAILY [facility] Stop: 01/31/21 08:59 Last Admin: 01/01/21 08:59 Dose: 10 mg Documented by: Aspirin (Aspirin 81 Mg Ectab) 81 mg PO DAILY [facility] Stop: 01/31/21 08:59 Last Admin: 01/01/21 08:59 Dose: 81 mg Documented by: Cyanocobalamin (Cyanocobalamin 500 Mcg Tablet (Vitamin B-12)) 1,000 mcg PO DAILY [facility] Stop: 01/31/21 08:59 Last Admin: 01/01/21 08:58 Dose: 1,000 mcg Documented by: Dextrose (Dextrose 50% 50 Ml Syringe) 25 - 50 ml IV UD PRN; Protocol PRN Reason: Hypoglycemia Protocol Stop: 01/30/21 17:28 Enoxaparin Sodium (Enoxaparin Inj 40 Mg/0.4 Ml Syr) 40 mg SQ Q24H [facility] Stop: 01/30/21 19:59 Last Admin: 12/31/20 20:26 Dose: 40 mg Documented by: Fluticasone Propionate (Fluticasone Propionate Na Spr 16 Gm Btl) 2 sprays YARELI DAILY PRN PRN Reason: Congestion Stop: 01/30/21 17:28 Fluticasone/Vilanterol (Fluticasone/Vilanterol 200/25mcg 14 Puffs/Inhaler) 1 puffs INH DAILY@2100 [facility] Stop: 01/30/21 20:59 Last Admin: 12/31/20 20:26 Dose: 1 puffs Documented by: Glucagon (Glucagon For Inj 1 Mg Vial) 1 mg SQ UD PRN; Protocol PRN Reason: Hypoglycemia Protocol Stop: 01/30/21 17:28 Glucose (Glucose 10 Tabs/Tube) 4 - 8 tabs PO UD PRN; Protocol PRN Reason: Hypoglycemia Protocol Stop: 01/30/21 17:28 Glucose (Glucose 40% Gel 15 Gm Tube) 15 - 30 gm PO UD PRN; Protocol PRN Reason: Hypoglycemia Protocol Stop: 01/30/21 17:28 Remdesivir 100 mg/ Sodium (Chloride) 250 mls @ 250 mls/hr IV Q24H [facility]; Protocol Stop: 01/04/21 12:59 Last Infusion: 01/01/21 14:15 Dose: Infused Documented by: Dexamethasone 6 mg/ Syringe 1.5 mls @ 1 mls/min IV DAILY [facility] Stop: 01/11/21 08:59 Last Admin: 01/01/21 08:58 Dose: 1 mls/min Documented by: Insulin Aspart (Insulin Aspart 100 Units/Ml 3 Ml Pen) 0 units SC ACHS [facility] Stop: 01/30/21 17:28 Last Admin: 01/01/21 13:00 Dose: 6 units Documented by: Insulin Glargine (Insulin Glargine Solostar 100 Units/Ml 3 Ml Pen) 45 units SC DAILY [facility] Stop: 01/31/21 08:59 Last Admin: 01/01/21 08:55 Dose: 45 units Documented by: Insulin Human NPH (Insulin Human Nph) 20 units SC DAILY [facility]; Protocol Stop: 01/31/21 08:59 Last Admin: 01/01/21 08:55 Dose: 20 units Documented by: Levothyroxine Sodium (Levothyroxine Sodium 112 Mcg Tablet) 112 mcg PO DAILYBB [facility] Stop: 01/31/21 06:29 Last Admin: 01/01/21 05:38 Dose: 112 mcg Documented by: Losartan Potassium (Losartan Potassium 50 Mg Tab) 100 mg PO DAILY [facility] Stop: 01/31/21 08:59 Last Admin: 01/01/21 08:58 Dose: 100 mg Documented by: Miscellaneous (Carbohydrates For Hypoglycemia ) 15 - 30 gm PO UD PRN PRN Reason: Hypoglycemia Protocol Stop: 01/30/21 17:28 Miscellaneous Information (Pharmacy Glycemic Mgmt Consult) 1 ea N/A UD PRN; Protocol PRN Reason: Consult Stop: 01/30/21 16:42 Montelukast Sodium (Montelukast Sodium 10 Mg Tablet) 10 mg PO PM [facility] Stop: 01/30/21 20:59 Last Admin: 12/31/20 20:26 Dose: 10 mg Documented by: Ondansetron HCl (Ondansetron Inj 2 Mg/Ml 2 Ml Vial) 4 mg IV Q6H PRN PRN Reason: Nausea Stop: 01/30/21 17:28 Pantoprazole Sodium (Pantoprazole 40 Mg Tab) 40 mg PO DAILY [facility] Stop: 01/31/21 08:59 Last Admin: 01/01/21 08:59 Dose: 40 mg Documented by: Rosuvastatin Calcium (Rosuvastatin Calcium 20 Mg Tab) 20 mg PO DAILY [facility] Stop: 01/31/21 08:59 Last Admin: 01/01/21 08:59 Dose: 20 mg Documented by: Sodium Chloride (Sodium Chloride 0.9% 10ml Flush) 30 ml IV Q24H [facility] Stop: 01/04/21 12:01 Last Admin: 01/01/21 14:20 Dose: 30 ml Documented by: Trazodone HCl (Trazodone Hcl 50 Mg Tab) 50 mg PO HS [facility] Stop: 01/30/21 20:59 Last Admin: 12/31/20 20:26 Dose: 50 mg Documented by: Vitamin D (Cholecalciferol 1,000 Units 25 Mcg Tab) 1,000 units PO QAM [facility] Stop: 01/31/21 08:59 Last Admin: 01/01/21 08:59 Dose: 1,000 units Documented by:
[2021-01-01] MEDS: FLUTICASONE/VILANTEROL 200/25MCG 14 PUFFS/INHALER INH SCH (20:32)
[2021-01-01] MEDS: ENOXAPARIN INJ 40 MG/0.4 ML SYR SQ SCH (20:34)
[2021-01-01] MEDS: MONTELUKAST SODIUM 10 MG TABLET PO SCH (20:35)
[2021-01-01] MEDS: guaiFENesin 600 MG TABCR PO SCH (20:41)
[2021-01-01] MEDS: traZODone HCL 50 MG TAB PO SCH (21:25)
[2021-01-01] MEDS: guaiFENesin SUGAR FREE 200 MG/10 ML UDC PO PRN (22:18)
[2021-01-02] MEDS: LEVOTHYROXINE SODIUM 112 MCG TABLET PO SCH (06:01)
[2021-01-02 08:04] LABS: Basophils # (auto) 0.01 K/uL (0-0.2); Basophils % (auto) 0.1 %; Hemoglobin 11.5 g/dL (12.0-16.0); Immature Granulocytes # (auto) 0.01 K/uL (0.00-0.02); Immature Granulocytes % (auto) 0.1 %; Lymphocytes # (auto) 1.86 K/uL (1.2-3.4); Lymphocytes % (auto) 21.2 %; Mean Corpuscular Hemoglobin 27.3 pg (25-34); Mean Corpuscular Hgb Conc 31.9 g/dL (32-36); Mean Corpuscular Volume 85.5 fL (80-100); Mean Platelet Volume 11.8 fL (7.4-10.4); Monocytes # (auto) 0.91 K/uL (0.11-0.59); Monocytes % (auto) 10.4 %; Neutrophils # (auto) 5.98 K/uL (1.4-6.5); Neutrophils % (auto) 68.2 %; Platelet Count 299 K/uL (130-400); RDW Coefficient of Variation 14.3 % (11.5-14.5); RDW Standard Deviation 44.7 fL (36.4-46.3); Red Blood Count 4.21 M/uL (4.2-5.4); White Blood Count 8.77 K/uL (4.8-10.8)
[2021-01-02 08:22] LABS: BUN Creatinine Ratio 33.1 (10-20); Calcium 8.8 mg/dl (8.5-10.1); Creatinine Clr Calc Pharmacy 53.5 ml/min; Est GFR (Non-African American) 60.4 ml/min; Magnesium 2.4 mg/dl (1.8-2.4); Phosphorus 3.8 mg/dl (2.5-4.9)
[2021-01-02] MEDS: INSULIN ASPART 100 UNITS/ML 3 ML PEN SC SCH ×4 (08:49→20:07)
[2021-01-02] MEDS: INSULIN GLARGINE SOLOSTAR 100 UNITS/ML 3 ML PEN SC SCH (08:49)
[2021-01-02] MEDS: INSULIN HUMAN NPH SC SCH (08:49)
[2021-01-02] MEDS: CYANOCOBALAMIN 500 MCG TABLET (VITAMIN B-12) PO SCH (08:50)
[2021-01-02] MEDS: PANTOprazole 40 MG TAB PO SCH (08:50)
[2021-01-02] MEDS: allopurinoL 100 MG TAB PO SCH (08:50)
[2021-01-02] MEDS: LOSARTAN POTASSIUM 50 MG TAB PO SCH (08:50)
[2021-01-02] MEDS: ASPIRIN 81 MG ECTAB PO SCH (08:51)
[2021-01-02] MEDS: guaiFENesin 600 MG TABCR PO SCH ×2 (08:51→20:44)
[2021-01-02] MEDS: dexAMETHasone 6 MG in SYRINGE 0 ML IV SCH (08:51)
[2021-01-02] MEDS: CHOLECALCIFEROL 1,000 UNITS 25 MCG TAB PO SCH (08:51)
[2021-01-02] MEDS: amLODIPine BESYLATE 5 MG TAB PO SCH (08:51)
[2021-01-02] MEDS: ROSUVASTATIN CALCIUM 20 MG TAB PO SCH (08:51)
[2021-01-02] MEDS: guaiFENesin SUGAR FREE 200 MG/10 ML UDC PO PRN ×2 (08:53→20:42)
[2021-01-02] MEDS: REMDESIVIR 100 MG in SODIUM CHLORIDE 0.9% 230 ML IV SCH (12:23)
[2021-01-02] MEDS: SODIUM CHLORIDE 0.9% 10ML FLUSH IV SCH (13:36)
--- NOTE | 2021-01-02 14:33 | Hospitalist Progress Note ---
Date of Service January 02, 2021 Assessment & Plan (1) Pneumonia due to COVID-19 virus: Plan: Pt is 80 y/o F with PMH DM II, HTN, dyslipidemia, PAD, asthma, hypothyroidism, depression, anxiety presented to ER with complaint of congestion, shortness of breath and wheezing x2 days. Fever 102F. + COVID-19 vaccination. In ER T: 37.9, P 94, R: 20, BP 181/77, 90% on room air up to 95% on 2L. +COVID 19 PCR CXR: Subtle mid and lower lung zone predominant interstitial coarsening is new from comparison In ER given IV Tylenol, hour-long albuterol neb, cefepime, Solu-Medrol 60 mg IV Isolation precautions for COVID-19 infection She is vaccinated for COVID-19 Admission CRP was 1.40,Procalcitonin less than 0.05 and ESR was 57 Initial lactate 2.3 --> 2.1 Albuterol nebs Supplemental oxygen as needed Started with IV dexamethasone and remdesivir Incentive spirometry, flutter valve proning if tolerated Has cough with wheezing on exertion but has not been requiring any oxygen to maintain saturation We will continue current management and will get to do steps O2 saturation tomorrow Likely discharge tomorrow 12/2020 (2) Asthma: Plan: She feels her shortness of breath is due to asthma exacerbation Which is complicating COVID-19 infection We will have nebulized bronchodilator and her other asthma medication will be continued If she does not require any oxygen for the next 24 to 48 hours and symptomatically better we will let her go home Likely has exacerbation of asthma Likely discharge tomorrow following 2 steps O2 saturation (3) Type II diabetes mellitus: Plan: Insulin-dependent A1c: 7.3 on 10/28/2020 Continue home Lantus NovoLog sliding scale per protocol (4) Hypertension: Plan: Stable Continue amlodipine (5) Hypothyroidism: Plan: Continue levothyroxine (6) Sleep apnea: Plan: CPAP at bedtime DVT Prophylaxis Lovenox SQ Full Code as per discussion with pt Follows with Dr Paez for routine care Admission and Anticipated Discharge Date Admission Date: December 31, 2020 Subjective 01/01/2021 The patient was seen and examined in telemetry unit She has been feeling much better and has been requiring up to 2 L of oxygen to maintain saturation Has cough with minimal wheezing 01/02/2021 The patient was seen and examined in telemetry unit She has been feeling much better and is not require any oxygen to maintain saturation Still has cough and wheezing on exertion and after cough Denies any chest pain and/or palpitation Review of Systems Review of Systems: All systems reviewed and are unremarkable except as noted below Respiratory: Cough with wheezing and shortness of breath Physical Exam Physical Exam: Lying in bed comfortably Constitutional: well developed, well nourished, + ill appearing and + obese Eyes: PERRL, conjunctivae normal, anicteric sclerae ENMT: external ear and nose normal, oropharynx normal Neck: trachea midline, no thyromegaly Respiratory: + cough; no respiratory distress Auscultation: + diminished lung sounds and + wheezes (Occasional wheezing ) Cardiovascular: Rate/Rhythm: regular rate and regular rhythm; not tachycardic Heart Sounds: normal S1 and normal S2; no murmur Extremities: + edema (Trace edema bilaterally) Gastrointestinal (Abdomen): Inspection/Auscultation: normal bowel sounds; abdomen not distended Percussion/Palpation: abdomen soft; abdomen nontender Musculoskeletal: No acute arthritis in any joint Neurologic: Alert, awake and oriented x3. No focal sensory and motor deficit appreciated Results & Data Results & Data ([facility]) Vital Signs (Past 12 Hours) Vital Signs Temp Pulse Pulse Pulse Resp BP BP 01/02/21 11:44 36.7 C 58 L 16 131/75 01/02/21 07:58 36.5 C 71 22 135/71 01/02/21 07:00 61 01/02/21 03:29 37 C 56 L 12 116/71 Pulse Ox 01/02/21 11:44 96 01/02/21 07:58 94 01/02/21 07:00 01/02/21 03:29 98 Laboratory Results Short CBC 01/02/21 Range/Units 07:16 WBC 8.77 (4.8-10.8) K/uL Hgb 11.5 L (12.0-16.0) g/dL Hct 36.0 L (37-47) % Plt Count 299 (130-400) K/uL BMP 01/02/21 07:16 Sodium 138 Potassium 4.0 Chloride 106 Carbon Dioxide 24 BUN 30 H Creatinine 0.90 Glucose 133 H Calcium 8.8 Liver Function 01/02/21 Range/Units 07:16 AST 21 (15-37) U/L ALT 21 (12-78) U/L Medications Administered Current Inpatient Medications Acetaminophen (Acetaminophen 325 Mg Tab) 650 mg PO Q4H PRN PRN Reason: Pain or Fever Stop: 01/30/21 17:28 Last Admin: 12/31/20 22:00 Dose: 650 mg Documented by: Albuterol (Albuterol 0.083% Nebu Soln 3 Ml Vial) 2.5 mg NEB Q6R PRN PRN Reason: Shortness Of Breath Or Wheezing Stop: 01/30/21 17:28 Allopurinol (Allopurinol 100 Mg Tab) 100 mg PO DAILY [facility] Stop: 01/31/21 08:59 Last Admin: 01/02/21 08:50 Dose: 100 mg Documented by: Amlodipine Besylate (Amlodipine Besylate 5 Mg Tab) 10 mg PO DAILY [facility] Stop: 01/31/21 08:59 Last Admin: 01/02/21 08:51 Dose: 10 mg Documented by: Aspirin (Aspirin 81 Mg Ectab) 81 mg PO DAILY [facility] Stop: 01/31/21 08:59 Last Admin: 01/02/21 08:51 Dose: 81 mg Documented by: Cyanocobalamin (Cyanocobalamin 500 Mcg Tablet (Vitamin B-12)) 1,000 mcg PO DAILY [facility] Stop: 01/31/21 08:59 Last Admin: 01/02/21 08:50 Dose: 1,000 mcg Documented by: Dextrose (Dextrose 50% 50 Ml Syringe) 25 - 50 ml IV UD PRN; Protocol PRN Reason: Hypoglycemia Protocol Stop: 01/30/21 17:28 Enoxaparin Sodium (Enoxaparin Inj 40 Mg/0.4 Ml Syr) 40 mg SQ Q24H [facility] Stop: 01/30/21 19:59 Last Admin: 01/01/21 20:34 Dose: 40 mg Documented by: Fluticasone Propionate (Fluticasone Propionate Na Spr 16 Gm Btl) 2 sprays YARELI DAILY PRN PRN Reason: Congestion Stop: 01/30/21 17:28 Fluticasone/Vilanterol (Fluticasone/Vilanterol 200/25mcg 14 Puffs/Inhaler) 1 puffs INH DAILY@2100 [facility] Stop: 01/30/21 20:59 Last Admin: 01/01/21 20:32 Dose: 1 puffs Documented by: Glucagon (Glucagon For Inj 1 Mg Vial) 1 mg SQ UD PRN; Protocol PRN Reason: Hypoglycemia Protocol Stop: 01/30/21 17:28 Glucose (Glucose 10 Tabs/Tube) 4 - 8 tabs PO UD PRN; Protocol PRN Reason: Hypoglycemia Protocol Stop: 01/30/21 17:28 Glucose (Glucose 40% Gel 15 Gm Tube) 15 - 30 gm PO UD PRN; Protocol PRN Reason: Hypoglycemia Protocol Stop: 01/30/21 17:28 Guaifenesin (Guaifenesin 600 Mg Tabcr) 1,200 mg PO Q12 [facility] Stop: 01/31/21 20:59 Last Admin: 01/02/21 08:51 Dose: Not Given Documented by: Guaifenesin (Guaifenesin Sugar Free 200 Mg/10 Ml Udc) 200 mg PO Q6H PRN PRN Reason: Cough Stop: 01/31/21 21:38 Last Admin: 01/02/21 08:53 Dose: 200 mg Documented by: Remdesivir 100 mg/ Sodium (Chloride) 250 mls @ 250 mls/hr IV Q24H [facility]; Protocol Stop: 01/04/21 12:59 Last Infusion: 01/02/21 13:36 Dose: Infused Documented by: Dexamethasone 6 mg/ Syringe 1.5 mls @ 1 mls/min IV DAILY [facility] Stop: 01/11/21 08:59 Last Admin: 01/02/21 08:51 Dose: 1 mls/min Documented by: Insulin Aspart (Insulin Aspart 100 Units/Ml 3 Ml Pen) 0 units SC ACHS [facility] Stop: 01/30/21 17:28 Last Admin: 01/02/21 12:23 Dose: 9 units Documented by: Insulin Glargine (Insulin Glargine Solostar 100 Units/Ml 3 Ml Pen) 45 units SC DAILY [facility] Stop: 01/31/21 08:59 Last Admin: 01/02/21 08:49 Dose: 45 units Documented by: Insulin Human NPH (Insulin Human Nph) 20 units SC DAILY [facility]; Protocol Stop: 01/31/21 08:59 Last Admin: 01/02/21 08:49 Dose: 20 units Documented by: Levothyroxine Sodium (Levothyroxine Sodium 112 Mcg Tablet) 112 mcg PO DAILYBB [facility] Stop: 01/31/21 06:29 Last Admin: 01/02/21 06:01 Dose: 112 mcg Documented by: Losartan Potassium (Losartan Potassium 50 Mg Tab) 100 mg PO DAILY [facility] Stop: 01/31/21 08:59 Last Admin: 01/02/21 08:50 Dose: 100 mg Documented by: Miscellaneous (Carbohydrates For Hypoglycemia ) 15 - 30 gm PO UD PRN PRN Reason: Hypoglycemia Protocol Stop: 01/30/21 17:28 Miscellaneous Information (Pharmacy Glycemic Mgmt Consult) 1 ea N/A UD PRN; Protocol PRN Reason: Consult Stop: 01/30/21 16:42 Montelukast Sodium (Montelukast Sodium 10 Mg Tablet) 10 mg PO PM [facility] Stop: 01/30/21 20:59 Last Admin: 01/01/21 20:35 Dose: 10 mg Documented by: Ondansetron HCl (Ondansetron Inj 2 Mg/Ml 2 Ml Vial) 4 mg IV Q6H PRN PRN Reason: Nausea Stop: 01/30/21 17:28 Pantoprazole Sodium (Pantoprazole 40 Mg Tab) 40 mg PO DAILY [facility] Stop: 01/31/21 08:59 Last Admin: 01/02/21 08:50 Dose: 40 mg Documented by: Rosuvastatin Calcium (Rosuvastatin Calcium 20 Mg Tab) 20 mg PO DAILY [facility] Stop: 01/31/21 08:59 Last Admin: 01/02/21 08:51 Dose: 20 mg Documented by: Sodium Chloride (Sodium Chloride 0.9% 10ml Flush) 30 ml IV Q24H [facility] Stop: 01/04/21 12:01 Last Admin: 01/02/21 13:36 Dose: 30 ml Documented by: Trazodone HCl (Trazodone Hcl 50 Mg Tab) 50 mg PO HS [facility] Stop: 01/30/21 20:59 Last Admin: 01/01/21 21:25 Dose: 50 mg Documented by: Vitamin D (Cholecalciferol 1,000 Units 25 Mcg Tab) 1,000 units PO QAM [facility] Stop: 01/31/21 08:59 Last Admin: 01/02/21 08:51 Dose: 1,000 units Documented by:
[2021-01-02] MEDS: FLUTICASONE/VILANTEROL 200/25MCG 14 PUFFS/INHALER INH SCH (20:08)
[2021-01-02] MEDS: MONTELUKAST SODIUM 10 MG TABLET PO SCH (20:11)
[2021-01-02] MEDS: ENOXAPARIN INJ 40 MG/0.4 ML SYR SQ SCH (20:11)
[2021-01-02] MEDS: traZODone HCL 50 MG TAB PO SCH (20:42)
[2021-01-03] MEDS: LEVOTHYROXINE SODIUM 112 MCG TABLET PO SCH (05:37)
[2021-01-03 08:11] LABS: BUN Creatinine Ratio 30.4 (10-20); Calcium 9.1 mg/dl (8.5-10.1); Creatinine Clr Calc Pharmacy 51.4 ml/min; Est GFR (African American) 68.2 ml/min; Est GFR (Non-African American) 58.8 ml/min; Potassium 3.8 mmol/L (3.5-5.1)
[2021-01-03 08:12] LABS: C Reactive Protein 0.54 mg/dl (0-0.29)
[2021-01-03] MEDS ORDERED: INSULIN GLARGINE SOLOSTAR 100 UNITS/ML 3 ML PEN SC SCH (09:00)
[2021-01-03] MEDS: INSULIN HUMAN NPH SC SCH (10:05)
[2021-01-03] MEDS: INSULIN ASPART 100 UNITS/ML 3 ML PEN SC SCH ×2 (10:05→12:40)
[2021-01-03] MEDS: LOSARTAN POTASSIUM 50 MG TAB PO SCH (10:08)
[2021-01-03] MEDS: dexAMETHasone 6 MG in SYRINGE 0 ML IV SCH (10:08)
[2021-01-03] MEDS: guaiFENesin SUGAR FREE 200 MG/10 ML UDC PO PRN (10:08)
[2021-01-03] MEDS: ASPIRIN 81 MG ECTAB PO SCH (10:09)
[2021-01-03] MEDS: amLODIPine BESYLATE 5 MG TAB PO SCH (10:09)
[2021-01-03] MEDS: guaiFENesin 600 MG TABCR PO SCH (10:09)
[2021-01-03] MEDS: CYANOCOBALAMIN 500 MCG TABLET (VITAMIN B-12) PO SCH (10:10)
[2021-01-03] MEDS: ROSUVASTATIN CALCIUM 20 MG TAB PO SCH (10:10)
[2021-01-03] MEDS: PANTOprazole 40 MG TAB PO SCH (10:10)
[2021-01-03] MEDS: CHOLECALCIFEROL 1,000 UNITS 25 MCG TAB PO SCH (10:11)
[2021-01-03] MEDS: allopurinoL 100 MG TAB PO SCH (10:11)
--- NOTE | 2021-01-03 12:14 | Hospitalist Progress Note ---
Date of Service January 03, 2021 Assessment & Plan (1) Pneumonia due to COVID-19 virus: Plan: Pt is 80 y/o F with PMH DM II, HTN, dyslipidemia, PAD, asthma, hypothyroidism, depression, anxiety presented to ER with complaint of congestion, shortness of breath and wheezing x2 days. Fever 102F. + COVID-19 vaccination. In ER T: 37.9, P 94, R: 20, BP 181/77, 90% on room air up to 95% on 2L. +COVID 19 PCR CXR: Subtle mid and lower lung zone predominant interstitial coarsening is new from comparison In ER given IV Tylenol, hour-long albuterol neb, cefepime, Solu-Medrol 60 mg IV Isolation precautions for COVID-19 infection She is vaccinated for COVID-19 Admission CRP was 1.40,Procalcitonin less than 0.05 and ESR was 57 Initial lactate 2.3 --> 2.1 Albuterol nebs Supplemental oxygen as needed Started with IV dexamethasone and remdesivir Incentive spirometry, flutter valve proning if tolerated Has cough with wheezing on exertion but has not been requiring any oxygen to maintain saturation Remains stable with minimal cough without any wheezing and/or shortness of breath She passed the 2 steps O2 saturation test and will be discharged home this afternoon (2) Asthma: Plan: She feels her shortness of breath is due to asthma exacerbation Which is complicating COVID-19 infection We will have nebulized bronchodilator and her other asthma medication will be co ntinued If she does not require any oxygen for the next 24 to 48 hours and symptomatically better we will let her go home Likely has exacerbation of asthma We will continue steroid for now and will give her nebulizer machine and nebulized bronchodilator at home (3) Type II diabetes mellitus: Plan: Insulin-dependent A1c: 7.3 on 10/28/2020 Continue home Lantus NovoLog sliding scale per protocol (4) Hypertension: Plan: Stable Continue amlodipine (5) Hypothyroidism: Plan: Continue levothyroxine (6) Sleep apnea: Plan: CPAP at bedtime DVT Prophylaxis Lovenox SQ Full Code as per discussion with pt Follows with Dr Paez for routine care Plan: Discharge home this afternoon Admission and Anticipated Discharge Date Admission Date: December 31, 2020 Subjective 01/01/2021 The patient was seen and examined in telemetry unit She has been feeling much better and has been requiring up to 2 L of oxygen to maintain saturation Has cough with minimal wheezing 01/02/2021 The patient was seen and examined in telemetry unit She has been feeling much better and is not require any oxygen to maintain saturation Still has cough and wheezing on exertion and after cough Denies any chest pain and/or palpitation 01/03/2021 The patient was seen and examined in telemetry unit She remains stable and has not been requiring any oxygen since admission She does have cough without any wheezing and/or shortness of breath She passed 2 steps O2 saturation test She will be discharged this afternoon Review of Systems Review of Systems: All systems reviewed and are unremarkable except as noted below Respiratory: Cough without any wheezing and shortness of breath Physical Exam Physical Exam: Lying in bed comfortably Constitutional: well developed, well nourished, + ill appearing and + obese Eyes: PERRL, conjunctivae normal, anicteric sclerae ENMT: external ear and nose normal, oropharynx normal Neck: trachea midline, no thyromegaly Respiratory: + cough; no respiratory distress Auscultation: + diminished lung sounds; no wheezes (Occasional wheezing ) Cardiovascular: Rate/Rhythm: regular rate and regular rhythm; not tachycardic Heart Sounds: normal S1 and normal S2; no murmur Extremities: + edema (Trac e edema bilaterally) Gastrointestinal (Abdomen): Inspection/Auscultation: normal bowel sounds; abdomen not distended Percussion/Palpation: abdomen soft; abdomen nontender Musculoskeletal: No acute arthritis in any joint Neurologic: Alert, awake and oriented x3. No focal sensory and motor deficit appreciated Psychiatric: A+Ox3, euthymic affect Results & Data Results & Data ([facility]) Vital Signs (Past 12 Hours) Vital Signs Temp Pulse Pulse Pulse Pulse Pulse Resp 01/03/21 11:47 37.2 C 71 17 01/03/21 09:39 89 77 72 01/03/21 07:11 37.0 C 60 17 01/03/21 07:00 53 L 01/03/21 04:43 36.6 C 74 18 Resp Resp Resp BP BP Pulse Ox Pulse Ox 01/03/21 11:47 153/90 H 94 01/03/21 09:39 22 20 17 92 01/03/21 07:11 161/81 H 99 01/03/21 07:00 01/03/21 04:43 140/80 95 Pulse Ox Pulse Ox 01/03/21 11:47 01/03/21 09:39 96 96 01/03/21 07:11 01/03/21 07:00 01/03/21 04:43 Laboratory Results BMP 01/03/21 07:04 Sodium 138 Potassium 3.8 Chloride 105 Carbon Dioxide 25 BUN 28 H Creatinine 0.92 Glucose 95 Calcium 9.1 Liver Function 01/03/21 Range/Units 07:04 AST 20 (15-37) U/L ALT 20 (12-78) U/L Medications Administered Current Inpatient Medications Acetaminophen (Acetaminophen 325 Mg Tab) 650 mg PO Q4H PRN PRN Reason: Pain or Fever Stop: 01/30/21 17:28 Last Admin: 12/31/20 22:00 Dose: 650 mg Documented by: Albuterol (Albuterol 0.083% Nebu Soln 3 Ml Vial) 2.5 mg NEB Q6R PRN PRN Reason: Shortness Of Breath Or Wheezing Stop: 01/30/21 17:28 Allopurinol (Allopurinol 100 Mg Tab) 100 mg PO DAILY [facility] Stop: 01/31/21 08:59 Last Admin: 01/03/21 10:11 Dose: 100 mg Documented by: Amlodipine Besylate (Amlodipine Besylate 5 Mg Tab) 10 mg PO DAILY [facility] Stop: 01/31/21 08:59 Last Admin: 01/03/21 10:09 Dose: 10 mg Documented by: Aspirin (Aspirin 81 Mg Ectab) 81 mg PO DAILY [facility] Stop: 01/31/21 08:59 Last Admin: 01/03/21 10:09 Dose: 81 mg Documented by: Cyanocobalamin (Cyanocobalamin 500 Mcg Tablet (Vitamin B-12)) 1,000 mcg PO DAILY [facility] Stop: 01/31/21 08:59 Last Admin: 01/03/21 10:10 Dose: 1,000 mcg Documented by: Dextrose (Dextrose 50% 50 Ml Syringe) 25 - 50 ml IV UD PRN; Protocol PRN Reason: Hypoglycemia Protocol Stop: 01/30/21 17:28 Enoxaparin Sodium (Enoxaparin Inj 40 Mg/0.4 Ml Syr) 40 mg SQ Q24H [facility] Stop: 01/30/21 19:59 Last Admin: 01/02/21 20:11 Dose: 40 mg Documented by: Fluticasone Propionate (Fluticasone Propionate Na Spr 16 Gm Btl) 2 sprays YARELI DAILY PRN PRN Reason: Congestion Stop: 01/30/21 17:28 Fluticasone/Vilanterol (Fluticasone/Vilanterol 200/25mcg 14 Puffs/Inhaler) 1 puffs INH DAILY@2100 [facility] Stop: 01/30/21 20:59 Last Admin: 01/02/21 20:08 Dose: 1 puffs Documented by: Glucagon (Glucagon For Inj 1 Mg Vial) 1 mg SQ UD PRN; Protocol PRN Reason: Hypoglycemia Protocol Stop: 01/30/21 17:28 Glucose (Glucose 10 Tabs/Tube) 4 - 8 tabs PO UD PRN; Protocol PRN Reason: Hypoglycemia Protocol Stop: 01/30/21 17:28 Glucose (Glucose 40% Gel 15 Gm Tube) 15 - 30 gm PO UD PRN; Protocol PRN Reason: Hypoglycemia Protocol Stop: 01/30/21 17:28 Guaifenesin (Guaifenesin 600 Mg Tabcr) 1,200 mg PO Q12 [facility] Stop: 01/31/21 20:59 Last Admin: 01/03/21 10:09 Dose: Not Given Documented by: Guaifenesin (Guaifenesin Sugar Free 200 Mg/10 Ml Udc) 200 mg PO Q6H PRN PRN Reason: Cough Stop: 01/31/21 21:38 Last Admin: 01/03/21 10:08 Dose: 200 mg Documented by: Remdesivir 100 mg/ Sodium (Chloride) 250 mls @ 250 mls/hr IV Q24H [facility]; Protocol Stop: 01/04/21 12:59 Last Infusion: 01/02/21 13:36 Dose: Infused Documented by: Dexamethasone 6 mg/ Syringe 1.5 mls @ 1 mls/min IV DAILY [facility] Stop: 01/11/21 08:59 Last Admin: 01/03/21 10:08 Dose: 1 mls/min Documented by: Insulin Aspart (Insulin Aspart 100 Units/Ml 3 Ml Pen) 0 units SC ACHS [facility] Stop: 01/30/21 17:28 Last Admin: 01/03/21 10:05 Dose: 6 units Documented by: Insulin Glargine (Insulin Glargine Solostar 100 Units/Ml 3 Ml Pen) 40 units SC DAILY [facility] Stop: 02/02/21 08:59 Last Admin: 01/03/21 10:05 Dose: 40 units Documented by: Insulin Human NPH (Insulin Human Nph) 20 units SC DAILY [facility]; Protocol Stop: 01/31/21 08:59 Last Admin: 01/03/21 10:05 Dose: 20 units Documented by: Levothyroxine Sodium (Levothyroxine Sodium 112 Mcg Tablet) 112 mcg PO DAILYBB [facility] Stop: 01/31/21 06:29 Last Admin: 01/03/21 05:37 Dose: 112 mcg Documented by: Losartan Potassium (Losartan Potassium 50 Mg Tab) 100 mg PO DAILY [facility] Stop: 01/31/21 08:59 Last Admin: 01/03/21 10:08 Dose: 100 mg Documented by: Miscellaneous (Carbohydrates For Hypoglycemia ) 15 - 30 gm PO UD PRN PRN Reason: Hypoglycemia Protocol Stop: 01/30/21 17:28 Miscellaneous Information (Pharmacy Glycemic Mgmt Consult) 1 ea N/A UD PRN; Protocol PRN Reason: Consult Stop: 01/30/21 16:42 Montelukast Sodium (Montelukast Sodium 10 Mg Tablet) 10 mg PO PM [facility] Stop: 01/30/21 20:59 Last Admin: 01/02/21 20:11 Dose: 10 mg Documented by: Ondansetron HCl (Ondansetron Inj 2 Mg/Ml 2 Ml Vial) 4 mg IV Q6H PRN PRN Reason: Nausea Stop: 01/30/21 17:28 Pantoprazole Sodium (Pantoprazole 40 Mg Tab) 40 mg PO DAILY [facility] Stop: 01/31/21 08:59 Last Admin: 01/03/21 10:10 Dose: 40 mg Documented by: Rosuvastatin Calcium (Rosuvastatin Calcium 20 Mg Tab) 20 mg PO DAILY [facility] Stop: 01/31/21 08:59 Last Admin: 01/03/21 10:10 Dose: 20 mg Documented by: Sodium Chloride (Sodium Chloride 0.9% 10ml Flush) 30 ml IV Q24H [facility] Stop: 01/04/21 12:01 Last Admin: 01/02/21 13:36 Dose: 30 ml Documented by: Trazodone HCl (Trazodone Hcl 50 Mg Tab) 50 mg PO HS [facility] Stop: 01/30/21 20:59 Last Admin: 01/02/21 20:42 Dose: 50 mg Documented by: Vitamin D (Cholecalciferol 1,000 Units 25 Mcg Tab) 1,000 units PO [facility] Stop: 01/31/21 08:59 Last Admin: 01/03/21 10:11 Dose: 1,000 units Documented by:
[2021-01-03] MEDS: REMDESIVIR 100 MG in SODIUM CHLORIDE 0.9% 230 ML IV SCH (12:43)
[2021-01-03] MEDS: SODIUM CHLORIDE 0.9% 10ML FLUSH IV SCH (13:53)
[2021-01-03] MEDS: ACETAMINOPHEN 325 MG TAB PO PRN (14:54)
--- NOTE | 2021-01-04 07:16 | Discharge Summary ---
Date of Service January 04, 2021 Admission HPI Per Admitting Provider Pt is 80 y/o F with PMH DM II, HTN, dyslipidemia, PAD, asthma, hypothyroidism, depression, anxiety presented to ER with complaint of congestion, shortness of breath and wheezing x2 days. Then reports developed fever 102F. Patient using albuterol inhaler and nebulizer without relief. Reports increased shortness of breath today so presented to ER. Patient reports had for COVID-19 vaccination. Denies any known ill contacts. Denies diaphoresis, N/V/D/C, MANDEL, dizziness, syncope, vision changes, neck pain, CP, palpitations, sore throat, choking, otalgia, rhinorrhea, abdominal pain, paresthesias, weakness, extremity weakness, extremity edema, rashes, urinary symptoms. In ER T: 37.9, P 94, R: 20, BP 181/77, 90% on room air up to 95% on 2L. In ER given IV Tylenol, hour-long albuterol neb, cefepime, Solu-Medrol 60 mg IV. COVID 19 Positive. CXR: Subtle mid and lower lung zone predominant interstitial coarsening is new from comparison Admission Exam Per Admitting Provider Sitting at the edge of the bed with minimal symptoms Hemodynamically stable with tachycardia of 101 likely secondary to use of nebulized bronchodilator Chestdecreased breath sounds at the right base otherwise clear HeartS1-S2, regular Abdomenbenign Extremitiesnegative for edema Principal Diagnosis Pneumonia due to COVID-19 virus infection, asthma exacerbation, hypertension Discharge Exam Constitutional well developed, well nourished, + ill appearing and + obese Eyes PERRL, conjunctivae normal, anicteric sclerae ENMT external ear and nose normal, oropharynx normal Neck trachea midline, no thyromegaly Respiratory + cough; no respiratory distress Auscultation: + diminished lung sounds; no wheezes (Occasional wheezing ) Cardiovascular Rate/Rhythm: regular rate and regular rhythm; not tachycardic Heart Sounds: normal S1 and normal S2; no murmur Extremities: + edema (Trace edema bilaterally) Gastrointestinal (Abdomen) Inspection/Auscultation: normal bowel sounds; abdomen not distended Percussion/Palpation: abdomen soft; abdomen nontender Psychiatric A+Ox3, euthymic affect Discharge Data Allergies Allergy/AdvReac Type Severity Reaction Status Date / Time bee venom protein (honey bee) Allergy Intermediate Hives Verified 12/31/20 14:15 meperidine AdvReac Intermediate vertigo Unverified 12/31/20 14:15 alfentanil AdvReac Mild Abdominal Verified 12/31/20 14:15 cramps Consultations 12/31/20 14:15 ED Decision to Admit Stat Hospital Course (1) Pneumonia due to COVID-19 virus: Pt is 80 y/o F with PMH DM II, HTN, dyslipidemia, PAD, asthma, hypothyroidism, depression, anxiety presented to ER with complaint of congestion, shortness of breath and wheezing x2 days. Fever 102F. + COVID-19 vaccination. In ER T: 37.9, P 94, R: 20, BP 181/77, 90% on room air up to 95% on 2L. +COVID 19 PCR CXR: Subtle mid and lower lung zone predominant interstitial coarsening is new from comparison In ER given IV Tylenol, hour-long albuterol neb, cefepime, Solu-Medrol 60 mg IV Isolation precautions for COVID-19 infection She is vaccinated for COVID-19 Admission CRP was 1.40,Procalcitonin less than 0.05 and ESR was 57 Initial lactate 2.3 --> 2.1 Albuterol nebs Supplemental oxygen as needed Started with IV dexamethasone and remdesivir Incentive spirometry, flutter valve proning if tolerated Has cough with wheezing on exertion but has not been requiring any oxygen to maintain saturation Remains stable with minimal cough without any wheezing and/or shortness of breath She passed the 2 steps O2 saturation test and will be discharged home this afternoon (2) Asthma: She feels her shortness of breath is due to asthma exacerbation Which is complicating COVID-19 infection We will have nebulized bronchodilator and her other asthma medication will be continued If she does not require any oxygen for the next 24 to 48 hours and s ymptomatically better we will let her go home Likely has exacerbation of asthma We will continue steroid for now and will give her nebulizer machine and nebulized bronchodilator at home (3) Type II diabetes mellitus: Insulin-dependent A1c: 7.3 on 10/28/2020 Continue home Lantus NovoLog sliding scale per protocol (4) Hypertension: Stable Continue amlodipine (5) Hypothyroidism: Continue levothyroxine (6) Sleep apnea: CPAP at bedtime DVT Prophylaxis Lovenox SQ Full Code as per discussion with pt Follows with Dr Paez for routine care Discharge home this afternoon Total Time Total Time Spent Total Time Spent (In Minutes): 35 minutes Discharge Plan Discharge Items Patient Disposition: Home - Self-Care Reason For Visit: WHEEZING,COUGH,FEVER Discharge Diagnosis: Pneumonia due to COVID-19 virus infection, asthma exacerbation, hypertension Condition on Discharge: Fair Activity: Resume your previous activity Non-emergency contact: Primary Care Provider Call non-emergency contact if: you have any medication questions and your symptoms worsen Follow-up/Referrals: Maria Isabel Paez DO [Primary Care Provider] - (Date & Time 01/07/2021 11:20 AM Provider Maria Isabel Paez DO [facility] PLEASE NOTE THAT THIS IS A TELEHEALTH APPOINTMENT. PLEASE FOLLOW THE INSTRUCTIONS PROVIDED IN YOUR EMAIL. IF YOU HAVE ANY QUESTIONS REGARDING THIS APPOINTMENT, PLEASE CALL ) Diet: Carb Consistent or DM2 and Heart Healthy Addtl Attending Provider Instructions: Please take precautions to avoid falls Use your nebulizers as advised Take isolation precautions as advised below until 01/09/2021 and following that usual precaution as per CDC guideline. Home Isolation COVID-19 Instructions The following information about Home Isolation is from the CDC Website: https://www.cdc.gov/coronavirus/2019-ncov/hcp/baakqskr-yzfzfct-nqimte.html Stay home except to get medical care People who are mildly ill with COVID-19 are able to isolate at home during their illness. You should restrict activities outside your home, except for getting medical care. Do not go to work, school, or public areas. Avoid using public transportation, ride-sharing, or taxis. Separate yourself from other people and animals in your home People: As much as possible, you should stay in a specific room and away from other people in your home. Also, you should use a separate bathroom, if available. Animals: You should restrict contact with pets and other animals while you are sick with COVID-19, just like you would around other people. Although there have not been reports of pets or other animals becoming sick with COVID-19, it is still recommended that people sick with COVID-19 limit contact with animals until more information is known about the virus. When possible, have another member of your household care for your animals while you are sick. If you are sick with COVID-19, avoid contact with your pet, including petting, snuggling, being kissed or licked, and sharing food. If you must care for your pet or be around animals while you are sick, wash your hands before and after you interact with pets and wear a face mask. Call ahead before visiting your doctor If you have a medical appointment, call the healthcare provider and tell them that you have or may have COVID-19. This will help the healthcare providers office take steps to keep other people from getting infected or exposed. Wear a face mask You should wear a face mask when you are around other people (e.g., sharing a room or vehicle) or pets and before you enter a healthcare providers office. If you are not able to wear a face mask (for example, because it causes trouble breathing), then people who live with you should not stay in the same room with you, or they should wear a face mask if they enter your room. Cover your coughs and sneezes Cover your mouth and nose with a tissue when you cough or sneeze. Throw used tissues in a lined trash can. Immediately wash your hands with soap and water for at least 20 seconds or, if soap and water are not available, clean your hands with an alcohol-based hand coding file clerk that contains at least 60% alcohol. Clean your hands often Wash your hands often with soap and water for at least 20 seconds, especially after blowing your nose, coughing, or sneezing; going to the bathroom; and before eating or preparing food. If soap and water are not readily available, use an alcohol-based hand coding file clerk with at least 60% alcohol, covering all surfaces of your hands and rubbing them together until they feel dry. Soap and water are the best option if hands are visibly dirty. Avoid touching your eyes, nose, and mouth with unwashed hands. Avoid sharing personal household items You should not share dishes, drinking glasses, cups, eating utensils, towels, or bedding with other people or pets in your home. After using these items, they should be washed thoroughly with soap and water. Clean all high-touch surfaces everyday High touch surfaces include counters, tabletops, doorknobs, bathroom fixtures, toilets, phones, keyboards, tablets, and bedside tables. Also, clean any surfaces that may have blood, stool, or body fluids on them. Use a household cleaning spray or wipe, according to the label instructions. Labels contain instructions for safe and effective use of the cleaning product including precautions you should take when applying the product, such as wearing gloves and making sure you have good ventilation during use of the product. Monitor your symptoms Seek prompt medical attention if your illness is worsening (e.g., difficulty breathing).Beforeseeking care, call your healthcare provider and tell them that you have, or are being evaluated for, COVID-19. Put on a face mask before you enter the facility. These steps will help the healthcare providers office to keep other people in the office or waiting room from getting infected or exposed. Ask your healthcare provider to call the local or state health department. Persons who are placed under active monitoring or facilitated self- monitoring should follow instructions provided by their local health department or occupational health professionals, as appropriate. When working with your local health department check their available hours. If you have a medical emergency and need to call 911, notify the dispatch personnel that you have, or are being evaluated for COVID-19. If possible, put on a face mask before emergency medical services arrive. Discontinuing home isolation Patients with confirmed COVID-19 should remain under home isolation precautions until the risk of secondary transmission to others is thought to be low. The decision to discontinue home isolation precautions should be made on a [id number] basis, in consultation with healthcare providers and state and local health departments. Pending Studies at Discharge: No Stand-Alone Forms: Home Isolation COVID No Kit, My [facility], Smoking Cessation Medications and DC Order Prescriptions: New guaifenesin [Mucinex] 600 mg Tablet Extended Release 12hr 1,200 mg PO Q12 10 Days Qty: 40 RF: 0 dexamethasone 6 mg tablet 6 mg PO DAILY Qty: 6 RF: 0 Continued omeprazole 20 mg Capsule,Delayed Release(Dr/Ec) 20 mg PO DAILY RF: 0 montelukast 10 mg Tablet 10 mg PO PM RF: 0 insulin aspart U-100 [Novolog Flexpen U-100 Insulin] 100 unit/mL (3 mL) Insulin Pen 1 unit SUBCUT TID RF: 0 cholecalciferol (vitamin D3) [Vitamin D3] 25 mcg (1,000 unit) Tablet 1,000 unit PO QAM RF: 0 Lantus Solostar U-100 Insulin 100 unit/mL (3 mL) Insulin Pen 45 unit SUBCUT QAM RF: 0 albuterol sulfate 90 mcg/actuation Hfa Aerosol Inhaler 1 puff INHALATION Q6H PRN (Reason: SHORT OF BREATH) RF: 0 cyanocobalamin (vitamin B-12) 1,000 mcg Capsule 1,000 mcg PO DAILY RF: 0 amlodipine 10 mg tablet 10 mg PO DAILY Qty: 30 RF: 1 acetaminophen 500 mg Tablet 1,000 mg PO Q8 PRN (Reason: fever or pain) Qty: 180 RF: 0 fluticasone propion-salmeterol [Advair Diskus] 250-50 mcg/dose blister with device 2 inh INHALATION BID RF: 0 trazodone 50 mg tablet 50 mg PO HS RF: 0 allopurinol 100 mg tablet 100 mg PO DAILY RF: 0 losartan 100 mg tablet 100 mg PO DAILY RF: 0 levothyroxine [Synthroid] 112 mcg tablet 112 mcg PO DAILY RF: 0 rosuvastatin 20 mg tablet 20 mg PO DAILY RF: 0 aspirin 81 mg Tablet 81 mg PO DAILY RF: 0 fluticasone propionate 50 mcg/actuation Goldsmith,Suspension 2 spray INTRANASAL DAILY PRN (Reason: Congestion) RF: 0 albuterol sulfate 0.63 mg/3 mL Solution For Nebulization 0.63 mg INHALATION QID PRN (Reason: SHORT OF BREATH) 30 Days Qty: 50 RF: 0 Discharge Orders: Discharge Order (Routine); Ordered 01/03/21 Ordered By: Louis Cohen/Other Patient Handouts: A1C, Managing Type 2 Diabetes Admission Data Admit Date/Time: 12/31/20 14:45 Attending Provider: Louis Rushing Admit Provider: Louis Rushing Primary Care Provider: Maria Isabel Paez Other Providers: Louis Rushing Other Interventions: Discharge Summary Assessment (RN) Last Done: 01/03/21 14:34
== END 2021-01-03 16:44 | disposition home or self-care (01) | DRG 177 ==
LOC: ED 10:03 → EDINP 14:45 → 2S 19:44